=== PATIENT | female | born 1930 | race Caucasian/White ===

== ENCOUNTER 2016-04-11 15:50 | Observation (INO) | payer MEDICARE, BC ==
[~2016-04-11] VITALS: Ht 165.1 cm; Wt 78.0 kg
[~2016-04-11 15:50] MED LIST: AMIO200T PO; ASPI81CH CHEW; LACT1TAB2 PO; MEMA28CA PO; METO50TA PO; PRAV20TA2 PO; ZOLO50TA PO
--- NOTE | 2016-04-11 16:03 | PD ---
HPI Chief Complaint: Fall Time Seen by Provider: 15:59 Travel History International Travel<30 days: No Contact w/Intl Traveler<30days: No Traveled to known affect area: No History of Present Illness HPI 85-year-old female coming in from a local nursing facility via EMS status post fall earlier this morning. Patient states she fell backwards onto her buttocks. She is now having pain in her right hip/pelvis and low back. Patient denies head injury or neck pain. She has no loss of consciousness. No complaints of upper extremity pain, thoracic pain, or abdominal pain. Patient remembers her fall and landing. Patient states her pain is 8 out of 10. She has not been able to bear weight since. She denies numbness tingling or weakness in her lower extremities. She has allergies to most narcotics. She has a history of a pacemaker. She is allergic to sulfa. PFSH Past Medical History Arthritis: Yes Asthma: No Anxiety: Yes Depression: Yes Heart Rhythm Problems: Yes Cancer: No Cardiac Catheterization: Yes Cardiovascular Problems: Yes High Cholesterol: Yes Chest Pain: Yes (with anxiety) Congestive Heart Failure: Yes Cerebrovascular Accident: Yes Dementia: Yes Diabetes: No Diminished Hearing: No Endocrine: No Gastrointestinal Disorders: Yes (ABD. PAIN,) GERD: No Genitourinary: No Headaches: Yes Hepatitis: No Hiatal Hernia: Yes (?REPAIRED) Hypertension: Yes (DENIES) Immune Disorder: No Implanted Vascular Access Dvce: Yes Musculoskeletal: Yes Neurologic: Yes Psychiatric: Yes Reproductive: No Respiratory: No Immunizations Current: Yes Migraines: No Seizures: No Thyroid Disease: No Ulcer: No PNEUMOCCOCAL Vaccine (Year): 1 Menopausal: Yes : 2 Para: 2 Miscarriage: 0 : 0 Past Surgical History Abdominal Surgery: Yes (hysterectomy,gall bladder,appendectomy) AICD: Yes Appendectomy: Yes Body Medical Devices: PLASTIC CRANIAL PLATE, AICD Cardiac Surgery: Yes (pacer/defib x2) Cholecystectomy: Yes Coronary Artery Bypass Graft: No Ear Surgery: No Endocrine Surgery: Yes (pituitary tumor removed) Eye Surgery: Yes (cataracts) Genitourinary Surgery: No Gynecologic Surgery: Yes (hysterectomy) Hysterectomy: Yes Joint Replacement: No Neurologic Surgery: Yes (plate placed) Oral Surgery: No Pacemaker: Yes Thoracic Surgery: No Tonsillectomy: Yes Other Surgery: Yes (hiatal hernia, PACER PLACEMENT 01/2009. pituitary gland removed) Social History Alcohol Use: No Tobacco Use: No Substance Use: No Allergies-Medications (Allergen,Severity, Reaction): Coded Allergies: Darvocet-N 100 (Verified Allergy, Severe, HYPOTENSION, 04/11/16) Darvon (Verified Allergy, Severe, emotional duress & hypotension, 04/11/16) Sulfa (Verified Allergy, Unknown, does no know, 04/11/16) Lortab (Verified Adverse Reaction, Severe, emotional duress & hypotension , 04/11/16) Uncoded Allergies: MOST NARCOTICS CAUSE SHOCK (Allergy, Severe, 08/30/07) PACEMAKER (Adverse Reaction, Unknown, mri precaution pacemaker, 10/21/14) mri precaution non compatible pacemaker Reported Meds & Prescriptions Reported Meds & Active Scripts Active Namenda Xr (Memantine) 28 Mg Caper 28 Mg PO DAILY Amiodarone (Amiodarone HCl) 200 Mg Tab 400 Mg PO BID 30 Days Reported Zoloft (Sertraline HCl) 50 Mg Tab 100 Mg PO DAILY Pravastatin 20 Mg Tab 20 Mg PO DAILY Probiotic Acidophilus Sup (Lactobacillus) 1 Tab Tab 1 Tab PO Metoprolol Tartrate 50 Mg Tab 25 Mg PO BID Aspirin 81 Mg Chew 81 Mg CHEW DAILY Review of Systems Except as stated in HPI: all other systems reviewed are Neg General / Constitutional: No: Fever Eyes: No: Visual changes HENT: No: Headaches Cardiovascular: No: Chest Pain or Discomfort Respiratory: No: Shortness of Breath Gastrointestinal: No: Abdominal Pain Genitourinary: No: Dysuria Musculoskeletal: No: Pain Skin: No Rash Neurologic: No: Weakness Psychiatric: No: Depression Endocrine: No: Polydipsia Hematologic/Lymphatic: No: Easy Bruising Physical Exam Narrative GENERAL: Patient appears in mild distress. SKIN: Warm and dry. Normal color. Normal turgor. No abrasions or obvious signs of trauma. HEAD: Atraumatic. Normocephalic. Nontender. EYES: Pupils equal and round. No scleral icterus. No injection or drainage. ENT: No nasal bleeding or discharge. Mucous membranes pink and moist. Pharynx is normal. No dental injury. NECK: Trachea midline. No JVD. No bony step-off or tenderness. Range of motion is full. CARDIOVASCULAR: Regular rate and rhythm. No murmurs appreciated this time. RESPIRATORY: No accessory muscle use. Clear to auscultation. Breath sounds equal bilaterally. No thoracic tenderness with palpation. GASTROINTESTINAL: Abdomen soft, non-tender, nondistended. Hepatic and splenic margins not palpable. MUSCULOSKELETAL: Extremities without clubbing, cyanosis, or edema. No obvious deformities. Patient has pain in the right anterior pelvis with palpation and central pubic pressure. Left hip has normal range of motion without increased pain. Right hip has mild increased pain with flexion and internal rotation. Patient's back appears normal. She does have point tenderness in the lower thoracic upper lumbar region. No deformity or crepitus. NEUROLOGICAL: Awake and alert. No obvious cranial nerve deficits. Motor grossly within normal limits. Five out of 5 muscle strength in the arms and legs. Normal speech. PSYCHIATRIC: Appropriate mood and affect; insight and judgment normal. Data Data Last Documented VS Vital Signs Date Time Temp Pulse Resp B/P Pulse Ox O2 Delivery O2 Flow Rate FiO2 04/11/16 16:15 60 18 151/72 97 Nasal Cannula 2 04/11/16 16:05 98.2 Orders Electrocardiogram (04/11/16 16:03) Complete Blood Count With Diff (04/11/16 16:03) Comprehensive Metabolic Panel (04/11/16 16:03) Prothrombin Time / Inr (Pt) (04/11/16 16:03) Act Partial Throm Time (Ptt) (04/11/16 16:03) Hip, Uni(Ap&Lat) W Ap Pelvis (04/11/16 16:03) Iv Access Insert/Monitor (04/11/16 16:03) Oximetry (04/11/16 16:03) Ecg Monitoring (04/11/16 16:03) Sodium Chloride 0.9% Flush (Ns Flush) (04/11/16 16:15) Spine, Lumbar - Ltd (Ap & Lat) (04/11/16 16:06) Acetaminophen (Tylenol) (04/11/16 17:15) Ct Thor Spine W/O Contrast (04/11/16 18:22) Labs Laboratory Tests Test 04/11/16 04/11/16 17:40 17:50 White Blood Count 7.4 TH/MM3 Red Blood Count 4.86 MIL/MM3 Hemoglobin 14.5 GM/DL Hematocrit 44.5 % Mean Corpuscular Volume 91.5 FL Mean Corpuscular Hemoglobin 29.8 PG Mean Corpuscular Hemoglobin 32.6 % Concent Red Cell Distribution Width 15.6 % Platelet Count 76 TH/MM3 Mean Platelet Volume 8.3 FL Neutrophils (%) (Auto) 82.5 % Lymphocytes (%) (Auto) 10.1 % Monocytes (%) (Auto) 5.6 % Eosinophils (%) (Auto) 1.1 % Basophils (%) (Auto) 0.7 % Neutrophils # (Auto) 6.1 TH/MM3 Lymphocytes # (Auto) 0.7 TH/MM3 Monocytes # (Auto) 0.4 TH/MM3 Eosinophils # (Auto) 0.1 TH/MM3 Basophils # (Auto) 0.0 TH/MM3 CBC Comment AUTO DIFF Differential Comment AUTO DIFF CONFIRMED Platelet Estimate LOW Platelet Morphology Comment ENLARGED Sodium Level 142 MEQ/L Potassium Level 3.6 MEQ/L Chloride Level 105 MEQ/L Carbon Dioxide Level 25.9 MEQ/L Anion Gap 11 MEQ/L Blood Urea Nitrogen 10 MG/DL Creatinine 0.62 MG/DL Estimat Glomerular Filtration 92 ML/MIN Rate Random Glucose 95 MG/DL Calcium Level 8.0 MG/DL Total Bilirubin 0.7 MG/DL Aspartate Amino Transf 22 U/L (AST/SGOT) Alanine Aminotransferase 18 U/L (ALT/SGPT) Alkaline Phosphatase 90 U/L Total Protein 6.3 GM/DL Albumin 3.2 GM/DL Prothrombin Time 12.0 SEC Prothromb Time International 1.1 RATIO Ratio Activated Partial 26.1 SEC Thromboplast Time MDM Medical Decision Making Medical Screen Exam Complete: Yes Emergency Medical Condition: Yes Differential Diagnosis Fold. Pelvic fracture. Hip fracture. Hip strain. Narrative Course The patient is medically stable at time of exam. X-rays of the right hip and pelvis are ordered as well as AP lateral of lumbar spine. Patient did not request pain medication prior to x-rays. X-rays of the right upper and pelvis are negative for acute process per radiologist. AP and lateral of the lumbar spine showed arthritic changes without acute process. There is a loss of vertebral height of T12 per radiologist, and the patient has tenderness there. Patient is discussed with Dr. Peraza. Dr. Peraza recommended a CT scan of the thoracic spine to further evaluate possible T12 vertebral fracture. Patient was given Tylenol [address] shows subacute versus old compression fractures to the T8 and T12 per radiologist. Labs performed showed normal hematocrit and hemoglobin however platelets were noted to be low at 76. CMP abnormal show a calcium of 8.0, total protein 6.3, and albumin of 3.2. Coag show PT of 12.0, normal INR 1.1 and a PTT of 26.1. Patient was attempted to be ambulated which she was able to do with moderate difficulty and moderate to severe pain. Call was placed to Dr. Manzanares, and the patient was discussed. She agreed to admit patient to observation due to her thrombocytopenia, as well as her new onset back pain. Diagnosis Primary Impression: Acute thoracic back pain Qualified Code: M54.6 - Acute midline thoracic back pain Additional Impressions: Temporary low platelet count Fall Qualified Code: W19.XXXA - Fall, initial encounter Admitting Information Admitting Physician Requests: Observation Condition: Stable Kimani Hoyos Apr 11, 2016 16:03
[2016-04-11 16:05] VITALS: BP 168/80; PULSE 60; RESP 18; TEMP 98.2; O2SAT 98
[2016-04-11 16:15] VITALS: BP 151/72; PULSE 60; RESP 18; O2SAT 96; O2SAT 97
[2016-04-11] MEDS ORDERED: SODIUM CHLORIDE 0.9% FLUSH 5 ML FLUSH IVF PRN (16:15)
--- NOTE | 2016-04-11 16:53 | RADRPT ---
EXAM DATE/TIME: 04/11/2016 16:23 [facility] COMPARISON: No previous studies available for comparison. INDICATIONS: Right hip pain after fall. MEDICAL HISTORY: None. SURGICAL HISTORY: None. ENCOUNTER: Initial ACUITY: 1 day PAIN SCORE: 10/10 LOCATION: Right hip. FINDINGS: There are mild degenerative changes present about the right hip. Alignment is anatomic. Fracture is not appreciated. CONCLUSION: Degenerative changes, negative for fracture. Quintin Tavera MD FACR on April 11, 2016 at 16:46 Board Certified Radiologist. This report was verified electronically.
--- NOTE | 2016-04-11 16:56 | RADRPT ---
EXAM DATE/TIME: 04/11/2016 16:23 [facility] COMPARISON: CT ABDOMEN & PELVIS W CONTRAST, December 20, 2015, 19:57. INDICATIONS: Lower back pain after fall. MEDICAL HISTORY: None. SURGICAL HISTORY: None. ENCOUNTER: Initial ACUITY: 1 day PAIN SCORE: 10/10 LOCATION: Bilateral lower back. FINDINGS: There are [id number] changes in the lumbar spine with loss of disc space height at L2-3, 3-4, 4-5 and L5-S1. There is loss of vertebral body height at T12. There are moderate degenerative changes p resent at the facets. SI joints are normal. CONCLUSION: Degenerative changes as described above. The compression at T12 is indeterminate in age. MRI could be used to stage this. Quintin Tavera MD FACR on April 11, 2016 at 16:47 Board Certified Radiologist. This report was verified electronically.
[2016-04-11] MEDS ORDERED: ACETAMINOPHEN 325 MG TAB PO ONE (17:15)
[2016-04-11 18:21] LABS: APTT (PATIENT) 26.1 SEC (24.3-30.1); INTERNATIONAL NORMALIZED RATIO 1.1 RATIO
[2016-04-11 18:23] LABS: AUTOMATED NEUTROPHIL # 6.1 TH/MM3 (1.8-7.7); BASOPHIL % 0.7 % (0.0-2.0); EOSINOPHIL # 0.1 TH/MM3 (0-0.4); EOSINOPHIL % 1.1 % (0.0-4.0); HEMATOCRIT 44.5 % (35.0-46.0); HEMO FLAGS AUTO DIFF; LYMPH % 10.1 % (9.0-44.0); LYMPHOCYTE # 0.7 TH/MM3 (1.0-4.8); MEAN CELL VOLUME 91.5 FL (80.0-100.0); MEAN CORPUSCULAR HEMOGLOBIN 29.8 PG (27.0-34.0); MEAN CORPUSCULAR HGB CONC 32.6 % (32.0-36.0); MONO % 5.6 % (0.0-8.0); NEUT % 82.5 % (16.0-70.0); PLATELET COUNT 76 TH/MM3 (150-450); RED BLOOD COUNT 4.86 MIL/MM3 (4.00-5.30); RED CELL DISTRIBUTION WIDTH 15.6 % (11.6-17.2); WHITE BLOOD COUNT 7.4 TH/MM3 (4.0-11.0)
[2016-04-11 18:31] LABS: PLATELET ESTIMATE SMEAR LOW (NORMAL); PLATELET MORPHOLOGY ENLARGED (NORMAL); SCAN/DIFF AUTO DIFF CONFIRMED
[2016-04-11 18:36] LABS: ALKALINE PHOSPHATASE 90 U/L (45-117); ALT (GPT) 18 U/L (10-53); ANION GAP 11 MEQ/L (5-15); AST (GOT) 22 U/L (15-37); BICARBONATE 25.9 MEQ/L (21.0-32.0); BLOOD UREA NITROGEN 10 MG/DL (7-18); CHLORIDE 105 MEQ/L (98-107); GLOMERULAR FILTRATION RATE 92 ML/MIN (>89); POTASSIUM 3.6 MEQ/L (3.5-5.1); SODIUM (NA) 142 MEQ/L (136-145); TOTAL BILIRUBIN ADULT 0.7 MG/DL (0.2-1.0)
--- NOTE | 2016-04-11 19:57 | RADRPT ---
EXAM DATE/TIME: 04/11/2016 18:38 [facility] COMPARISON: No previous studies available for comparison. INDICATIONS : fall tody onto posterior, lower back pain. RADIATION DOSE: 18.92 CTDIvol (mGy) MEDICAL HISTORY : Stroke. Hypertension. SURGICAL HISTORY : Hysterectomy. Pacemaker. ENCOUNTER: Initial ACUITY: 1 day PAIN SCALE: 5/10 LOCATION: lower back TECHNIQUE: Volumetric scanning of the thoracic spine was performed. Multiplanar reconstructions in the sagittal , coronal and oblique axial planes were performed. Using automated exposure control and adjustment o f the mA and/or kV according to patient size, radiation dose was kept as low as reasonably achievable to obtain optimal diagnostic quality images. FINDINGS: No prior study available for comparison. The bones are osteopenic. There are multiple Schmorl's nodes most prominent at T8 inferiorly and T12 superiorly. There is a mild compression deformity of T12 but no acute fracture line is identified. There is a fracture of the left transverse process of L3 noted incidentally. There is no spondylolisthesis. No significant bony canal stenosis. CONCLUSION: 1. Mild compression deformities of T8 and T12 which appear subacute or old and are associated with Sc hmorl's nodes. The bones are diffusely osteopenic. There is no significant bony canal stenosis. Incid ental note made of a left transverse process fracture of L3. There is also a chronic appearing centra l depression in the superior endplate of L3. Edward Peterson MD on April 11, 2016 at 19:51 Board Certified Radiologist. This report was verified electronically.
[2016-04-11] MEDS ORDERED: SODIUM CHLORIDE 0.9% FLUSH 5 ML FLUSH FLUSH PRN (20:30)
[2016-04-11] MEDS ORDERED: NALOXONE HCL 0.4 MG/ML AMP IV PRN (20:30)
[2016-04-11] MEDS ORDERED: ONDANSETRON HCL 4 MG/2 ML VIAL IVP PRN (20:30)
[2016-04-11] MEDS: SODIUM CHLORIDE 0.9% FLUSH 5 ML FLUSH FLUSH SCH (21:00)
[2016-04-11] MEDS ORDERED: ACETAMINOPHEN 325 MG TAB PO PRN (22:15)
[2016-04-11 22:45] VITALS: PULSE 60
[2016-04-12] VITALS (7 sets, daily range): BP systolic 110–165; BP diastolic 59–88; PULSE 59–79; RESP 18–21; TEMP 97.4–98.2; O2SAT 93–97
--- NOTE | 2016-04-12 03:31 | HHI.HP ---
[facility] Primary Care Physician Kimo Haro MD Admission Diagnosis Throbocytopenia/Fall with Acute thoracic pain Diagnoses: Chief Complaint: right hip pain and back pain Travel History International Travel<30 Days: No Contact w/Intl Traveler <30 Da: No Traveled to Known Affected Are: No History of Present Illness History taken from patient, emr and er physician. 85 y/o female with a history of HTN, dementia, chf, and cva was brought to ER by [facility] after a fall at the [facility] and she is complaining of right hip pain and back pain. Patient is somewhat of a poor historian when discussing history and current events. Patient states she got up to go to the bathroom and was in a hurry when she slipped and fell. She states she fell on her butt and is complaining of right hip and back pain. She denies any chest pain, sob, fever or chills. She also denies any weakness or dizziness. She is unsure of her history, put does know that she has a pacemaker. She is currently at the [facility] for rehab. Review of Systems ROS Limitations: Poor Historian (hx of dementia) Constitutional: DENIES: Fever, Chills, Dizziness Respiratory: DENIES: Cough, Sputum production, Shortness of breath Cardiovascular: COMPLAINS OF: Lower Extremity Edema, DENIES: Chest pain, Palpitations Gastrointestinal: DENIES: Black stools, Bloody stools, Constipation, Diarrhea, Nausea, Vomiting Genitourinary: DENIES: Hematuria, Dysuria Musculoskeletal: COMPLAINS OF: Joint pain, Back pain, DENIES: Neck pain Hematologic/lymphatic: DENIES: Lymphadenopathy Immunologic/allergic: DENIES: Urticaria Neurologic: DENIES: Headache, Localized weakness Past Family Social History Past Medical History Per EMR: HTN Dementia CHF- last echo 10/23/14 EF 50% CVA Past Surgical History Per EMR: AICD Tonsillectomy Appendectomy Hysterectomy Hiatal hernia repair Pituitary tumor excision Reported Medications Reported Meds & Active Scripts Active Namenda Xr (Memantine) 28 Mg Caper 28 Mg PO DAILY Amiodarone (Amiodarone HCl) 200 Mg Tab 400 Mg PO BID 30 Days Reported Zoloft (Sertraline HCl) 50 Mg Tab 100 Mg PO DAILY Pravastatin 20 Mg Tab 20 Mg PO DAILY Probiotic Acidophilus Sup (Lactobacillus) 1 Tab Tab 1 Tab PO Metoprolol Tartrate 50 Mg Tab 25 Mg PO BID Aspirin 81 Mg Chew 81 Mg CHEW DAILY Allergies: Coded Allergies: Darvocet-N 100 (Verified Allergy, Severe, HYPOTENSION, 04/11/16) Darvon (Verified Allergy, Severe, emotional duress & hypotension, 04/11/16) Sulfa (Verified Allergy, Unknown, does no know, 04/11/16) Lortab (Verified Adverse Reaction, Severe, emotional duress & hypotension , 04/11/16) Uncoded Allergies: MOST NARCOTICS CAUSE SHOCK (Allergy, Severe, 08/30/07) PACEMAKER (Adverse Reaction, Unknown, mri precaution pacemaker, 10/21/14) mri precaution non compatible pacemaker Active Ordered Medications Current Medications Medications (Trade) Dose Ordered Sig/Uziel Route Start Time Stop Time Status Last Admin (NS Flush) 2 ml UNSCH PRN FLUSH 04/11/16 20:30 (NS Flush) 2 ml BID FLUSH 04/11/16 21:00 04/11/16 21:00 (Zofran Inj) 4 mg Q6H PRN IVP 04/11/16 20:30 (Narcan Inj) 0.4 mg UNSCH PRN IV 04/11/16 20:30 (Tylenol) 650 mg Q4H PRN PO 04/11/16 22:15 Family History Patient denies any family history. No family history noted in EMR. Social History Patient denies any tobacco, alcohol or illicit drug use. Physical Exam Vital Signs Vital Signs Date Time Temp Pulse Resp B/P Pulse Ox O2 Delivery O2 Flow Rate FiO2 04/11/16 22:45 60 04/11/16 21:38 20 04/11/16 16:15 60 18 151/72 97 Nasal Cannula 2 04/11/16 16:15 60 16 04/11/16 16:15 60 18 151/72 96 Nasal Cannula 2 04/11/16 16:05 98.2 60 18 168/80 98 Physical Exam GENERAL: This is a well-nourished, well-developed patient, in no apparent distress. SKIN: No rashes, ecchymoses or lesions. Cool and dry. HEAD: Atraumatic. Normocephalic. EYES: Pupils equal round and reactive. ENT: Nose without bleeding, purulent drainage or septal hematoma. Airway patent. NECK: Trachea midline. No JVD CARDIOVASCULAR: Regular rate and rhythm without murmurs, gallops, or rubs. RESPIRATORY: Clear to auscultation. Breath sounds equal bilaterally. No wheezes , rales, or rhonchi. GASTROINTESTINAL: Abdomen soft, non-tender, nondistended. No hepato-splenomegaly , or palpable masses. No guarding. MUSCULOSKELETAL: Bilateral lower extremities with +2 pitting edema and tenderness to the right leg. No calf tenderness. NEUROLOGICAL: Awake and alert with some dementia. Motor and sensory grossly within normal limits. Normal speech. Laboratory Laboratory Tests Test 04/11/16 04/11/16 17:40 17:50 White Blood Count 7.4 Red Blood Count 4.86 Hemoglobin 14.5 Hematocrit 44.5 Mean Corpuscular Volume 91.5 Mean Corpuscular Hemoglobin 29.8 Mean Corpuscular Hemoglobin 32.6 Concent Red Cell Distribution Width 15.6 Platelet Count 76 Mean Platelet Volume 8.3 Neutrophils (%) (Auto) 82.5 Lymphocytes (%) (Auto) 10.1 Monocytes (%) (Auto) 5.6 Eosinophils (%) (Auto) 1.1 Basophils (%) (Auto) 0.7 Neutrophils # (Auto) 6.1 Lymphocytes # (Auto) 0.7 Monocytes # (Auto) 0.4 Eosinophils # (Auto) 0.1 Basophils # (Auto) 0.0 CBC Comment AUTO DIFF Differential Comment AUTO DIFF CONFIRMED Platelet Estimate LOW Platelet Morphology Comment ENLARGED Sodium Level 142 Potassium Level 3.6 Chloride Level 105 Carbon Dioxide Level 25.9 Anion Gap 11 Blood Urea Nitrogen 10 Creatinine 0.62 Estimat Glomerular Filtration 92 Rate Random Glucose 95 Calcium Level 8.0 Total Bilirubin 0.7 Aspartate Amino Transf 22 (AST/SGOT) Alanine Aminotransferase 18 (ALT/SGPT) Alkaline Phosphatase 90 Total Protein 6.3 Albumin 3.2 Prothrombin Time 12.0 Prothromb Time International 1.1 Ratio Activated Partial 26.1 Thromboplast Time Result Diagram: 04/11/16 1740 04/11/16 1740 Imaging Last Impressions Thoracic Spine CT 04/11/16 1822 Signed Impressions: Service Date/Time: Monday, April 11, 2016 18:38 - CONCLUSION: 1. Mild compression deformities of T8 and T12 which appear subacute or old and are associated with Schmorl's nodes. The bones are diffusely osteopenic. There is no significant bony canal stenosis. Incidental note made of a left transverse process fracture of L3. There is also a chronic appearing central depression in the superior endplate of L3. Edward Peterson MD Lumbar Spine X-Ray 04/11/16 1606 Signed Impressions: Service Date/Time: Monday, April 11, 2016 16:23 - CONCLUSION: Degenerative changes as described above. The compression at T12 is indeterminate in age. MRI could be used to stage this. Quintin Tavera MD FACR Hip and Pelvis X-Ray 04/11/16 1603 Signed Impressions: Service Date/Time: Monday, April 11, 2016 16:23 - CONCLUSION: Degenerative changes, negative for fracture. Quintni Tavera MD FACR Assessment and Plan Problem List: (1) Temporary low platelet count ICD Code: D69.6 Status: Acute (2) Lumbar pain ICD Code: M54.5 Status: Acute (3) HTN (hypertension) ICD Code: I10 Status: Chronic (4) A-fib ICD Code: I48.91 Status: Chronic (5) Dementia ICD Code: F03.90 Status: Chronic Assessment and Plan 85 y/o with a history of HTN, DM, CHF and CVA presented with: Temporary low platelet count Labs: platelet 76 , last admission in 04/01/2016 count was 175 -HIT panel pending -Ultrasound bilateral lower extremities to rule out DVT L3 transvers process fx Images: Thoracic spine CT shows Mild compression deformities of T8 and T12 which appear subacute or old and are associated with Schmorl's nodes. The bones are diffusely osteopenic. There is no significant bony canal stenosis. Incidental note made of a left transverse process fracture of L3. There is also a chronic appearing central depression in the superior endplate of L3. -Neurosurgery consult for recommendations Hypertension, chronic -Monitor vitals -cont home metoprolol Afib, chronic -monitor tele -Cont home amiodarone Dementia, chronic -Cont home Namenda -fall precautions DVT prophylaxis: Hold SCDs and chemical anticoagulation due to low platelet count Written by Soco PACHECO, acting as scribe for Dr. Manzanares on 04/12/16 at 0405. The documentation accurately reflects the work performed [id number] and decisions made by me and the physician Dr Manzanares on 04/12/16. The documentation accurately reflects the work performed [id number] by me on at 0405 Discussed Condition With Patient and ED physician Soco Cervantes Apr 12, 2016 03:31 Kevin Manzanares MD Apr 12, 2016 08:06
[2016-04-12 07:18] LABS: AUTOMATED NEUTROPHIL # 4.9 TH/MM3 (1.8-7.7); BASOPHIL % 0.6 % (0.0-2.0); EOSINOPHIL # 0.2 TH/MM3 (0-0.4); EOSINOPHIL % 2.9 % (0.0-4.0); HEMATOCRIT 38.4 % (35.0-46.0); HEMO FLAGS DIFF FINAL; LYMPHOCYTE # 0.8 TH/MM3 (1.0-4.8); MEAN CELL VOLUME 87.5 FL (80.0-100.0); MEAN CORPUSCULAR HEMOGLOBIN 30.4 PG (27.0-34.0); MEAN CORPUSCULAR HGB CONC 34.8 % (32.0-36.0); MONO % 8.1 % (0.0-8.0); NEUT % 76.4 % (16.0-70.0); PLATELET COUNT 143 TH/MM3 (150-450); RED BLOOD COUNT 4.39 MIL/MM3 (4.00-5.30); RED CELL DISTRIBUTION WIDTH 15.6 % (11.6-17.2); WHITE BLOOD COUNT 6.5 TH/MM3 (4.0-11.0)
[2016-04-12 07:46] LABS: BICARBONATE 27.8 MEQ/L (21.0-32.0); POTASSIUM 3.4 MEQ/L (3.5-5.1)
[2016-04-12] MEDS: AMIODARONE 200 MG TAB PO SCH ×2 (09:06→20:51)
[2016-04-12] MEDS: SERTRALINE HCL 100 MG TAB PO SCH (09:06)
[2016-04-12] MEDS: METOPROLOL TARTRATE 25 MG TAB PO SCH ×2 (09:06→20:52)
[2016-04-12] MEDS: MEMANTINE HCL 10 MG TAB PO SCH ×2 (09:06→20:52)
[2016-04-12] MEDS: PRAVASTATIN SOD 20 MG TAB PO SCH (09:06)
--- NOTE | 2016-04-12 09:06 | RADRPT ---
EXAM DATE/TIME: 04/12/2016 08:22 [facility] COMPARISON: No previous studies available for comparison. INDICATIONS : Bilateral leg pain. MEDICAL HISTORY : Hypercholesterolemia. CVA. Dementia. Congestive heart failure. Syncope. Hiatal hernia. SURGICAL HISTORY : Tonsillectomy.Pacemaker. Hysterectomy.Cataract removal. Hernia repair. Cholecystectomy. Appendectomy. Clavicle repair. Pituitary tumor removal. Back surgery. ENCOUNTER: Subsequent ACUITY: 1 day PAIN SCORE: 4/10 LOCATION: Bilateral legs. TECHNIQUE: Venous ultrasound of the left and right leg was performed from the inguinal ligament to the proximal calf. Real-time, color Doppler and spectral tracing, compression and augmentation techniques were us ed. FINDINGS: RIGHT LEG: There is normal compressibility of the deep venous system from the inguinal region to the proximal ca lf. No echogenic clot is seen in the lumen of the common femoral, femoral, popliteal, and posterior tibial veins. There is a normal response of the venous system to proximal and distal augmentation an d respiration. LEFT LEG: There is normal compressibility of the deep venous system from the inguinal region to the proximal ca lf. No echogenic clot is seen in the lumen of the common femoral, femoral, popliteal, and posterior tibial veins. There is a normal response of the venous system to proximal and distal augmentation an d respiration. CONCLUSION: Normal examination. Small Nina's cyst on the left. Rafael Ernst MD on April 12, 2016 at 9:04 Board Certified Radiologist. This report was verified electronically.
[2016-04-12] MEDS: ASPIRIN 81 MG CHEW TAB CHEW SCH (09:07)
[2016-04-12] MEDS: SODIUM CHLORIDE 0.9% FLUSH 5 ML FLUSH FLUSH SCH ×2 (09:08→20:55)
--- NOTE | 2016-04-12 13:48 | EKG ---
Date Performed: 04/11/2016 Time Performed: 16:53:02 PTAGE: 85 years EKG: ELECTRONIC ATRIAL PACEMAKER MARKED LEFT AXIS DEVIATION MODERATE INTRAVENTRICULAR CONDUCTION DELAY NONSPECIFIC ST & T-WAVE ABNORMALITY ABNORMAL ECG Compared to prior tracing no significant guzman channing PREVIOUS TRACING : 02/24/2016 12.57 DOCTOR: Cynthia Clark Interpretating Date/Time 04/12/2016 13:45:41
--- NOTE | 2016-04-12 13:50 | PD.CONS ---
HPI Service Neurosurgery Consult Requested By ED Reason for Consult L3 TP fx, pain Primary Care Physician Kimo Haro MD History of Present Illness 85 yr old lady living at home with her daughter fell while going to the bathroom and has new neck and back pain. She has no new weakness and no new numbness. She controls her bladder. She had a work up in the ED and was found to have L3 superior end plate defect and left TP fx. Her pain is controlled with tylenol and tramadol. She walks with a walker ad also uses the wheelchair at home. She has a hospital bed in the living room and a commode. Review of Systems Hiccups ROS Limitations: Hearing Impaired Constitutional: DENIES: Diaphoretic episodes, Fatigue, Fever, Weight gain, Weight loss, Chills, Dizziness, Change in appetite, Night Sweats Endocrine: DENIES: Abnorml menstrual pattern, Heat/cold intolerance, Polydipsia , Polyuria, Polyphagia Ears, nose, mouth, throat: DENIES: Tinnitus, Hearing loss, Vertigo, Nasal discharge, Oral lesions, Throat pain, Hoarseness, Ear Pain, Running Nose, Epistaxis, Sinus Pain, Toothache, Odynophagia Respiratory: DENIES: Apneas, Cough, Snoring, Wheezing, Hemoptysis, Sputum production, Shortness of breath Cardiovascular: COMPLAINS OF: Dyspnea on Exertion, Lower Extremity Edema Genitourinary: DENIES: Abnormal vaginal bleeding, Dysmenorrhea, Dyspareunia, Sexual dysfunction, Urinary frequency, Urinary incontinence, Urgency, Hematuria , Dysuria, Nocturia, Vaginal discharge Musculoskeletal: COMPLAINS OF: Back pain, Neck pain Integumentary: DENIES: Abnormal pigmentation, Pruritus, Rash, Nail changes, Breast masses, Breast skin changes, Nipple discharge Hematologic/lymphatic: DENIES: Bruising, Lymphadenopathy Immunologic/allergic: DENIES: Eczema, Urticaria Past Family Social History Allergies: Coded Allergies: Darvocet-N 100 (Verified Allergy, Severe, HYPOTENSION, 04/11/16) Darvon (Verified Allergy, Severe, emotional duress & hypotension, 04/11/16) Sulfa (Verified Allergy, Unknown, does no know, 04/11/16) Lortab (Verified Adverse Reaction, Severe, emotional duress & hypotension , 04/11/16) Uncoded Allergies: MOST NARCOTICS CAUSE SHOCK (Allergy, Severe, 08/30/07) PACEMAKER (Adverse Reaction, Unknown, mri precaution pacemaker, 10/21/14) mri precaution non compatible pacemaker Past Medical History Arhythmias, CAD Degenerated disc disease Osteoporosis Past Surgical History Hernia repair Defibrillator Reported Medications Reported Meds & Active Scripts Active Namenda Xr (Memantine) 28 Mg Caper 28 Mg PO DAILY Amiodarone (Amiodarone HCl) 200 Mg Tab 400 Mg PO BID 30 Days Reported Zoloft (Sertraline HCl) 50 Mg Tab 100 Mg PO DAILY Pravastatin 20 Mg Tab 20 Mg PO DAILY Probiotic Acidophilus Sup (Lactobacillus) 1 Tab Tab 1 Tab PO Metoprolol Tartrate 50 Mg Tab 25 Mg PO BID Aspirin 81 Mg Chew 81 Mg CHEW DAILY Family History Both parents of old age Social History Lives in a house with her daughter, does not smoke or drink Physical Exam Vital Signs Vital Signs Date Time Temp Pulse Resp B/P Pulse Ox O2 Delivery O2 Flow Rate FiO2 04/12/16 11:32 98.2 60 20 124/61 95 04/12/16 09:00 59 04/12/16 07:15 97.4 60 20 165/75 96 04/12/16 04:00 97.7 79 21 148/78 97 04/12/16 00:00 98.0 67 18 138/88 97 04/11/16 22:45 60 04/11/16 21:38 20 04/11/16 16:15 60 18 151/72 97 Nasal Cannula 2 04/11/16 16:15 60 16 04/11/16 16:15 60 18 151/72 96 Nasal Cannula 2 04/11/16 16:05 98.2 60 18 168/80 98 Physical Exam Very pleasant lady looks her stated age, head is atraumatic Pupils are small,left ayala's palsy, speech fluent and appropriate, has a sense of humor, 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 Sensation is present in all extremities. Reflexes are 3/4 in the bic/tri/patella but she has no Kay sign and no Babinski Peripheral edema, severe, bilateral, no rashes, abd soft, obese, bs are present , lungs are clear, heart is regular Laboratory Laboratory Tests Test 04/11/16 04/11/16 04/12/16 17:40 17:50 06:20 White Blood Count 7.4 6.5 Red Blood Count 4.86 4.39 Hemoglobin 14.5 13.3 Hematocrit 44.5 38.4 Mean Corpuscular Volume 91.5 87.5 Mean Corpuscular Hemoglobin 29.8 30.4 Mean Corpuscular Hemoglobin 32.6 34.8 Concent Red Cell Distribution Width 15.6 15.6 Platelet Count 76 143 Mean Platelet Volume 8.3 8.8 Neutrophils (%) (Auto) 82.5 76.4 Lymphocytes (%) (Auto) 10.1 12.0 Monocytes (%) (Auto) 5.6 8.1 Eosinophils (%) (Auto) 1.1 2.9 Basophils (%) (Auto) 0.7 0.6 Neutrophils # (Auto) 6.1 4.9 Lymphocytes # (Auto) 0.7 0.8 Monocytes # (Auto) 0.4 0.5 Eosinophils # (Auto) 0.1 0.2 Basophils # (Auto) 0.0 0.0 CBC Comment AUTO DIFF DIFF FINAL Differential Comment AUTO DIFF CONFIRMED Platelet Estimate LOW Platelet Morphology Comment ENLARGED Sodium Level 142 142 Potassium Level 3.6 3.4 Chloride Level 105 107 Carbon Dioxide Level 25.9 27.8 Anion Gap 11 7 Blood Urea Nitrogen 10 10 Creatinine 0.62 0.59 Estimat Glomerular Filtration 92 97 Rate Random Glucose 95 85 Calcium Level 8.0 8.1 Total Bilirubin 0.7 Aspartate Amino Transf 22 (AST/SGOT) Alanine Aminotransferase 18 (ALT/SGPT) Alkaline Phosphatase 90 Total Protein 6.3 Albumin 3.2 Prothrombin Time 12.0 Prothromb Time International 1.1 Ratio Activated Partial 26.1 Thromboplast Time Result Diagram: 04/12/1620 04/12/16 0620 Imaging Last Impressions Lower Extremity Ultrasound 04/12/16 0000 Signed Impressions: Service Date/Time: Tuesday, April 12, 2016 08:22 - CONCLUSION: Normal examination. Small Nina's cyst on the left. Rafael Ernst MD Thoracic Spine CT 04/11/16 1822 Signed Impressions: Service Date/Time: Monday, April 11, 2016 18:38 - CONCLUSION: 1. Mild compression deformities of T8 and T12 which appear subacute or old and are associated with Schmorl's nodes. The bones are diffusely osteopenic. There is no significant bony canal stenosis. Incidental note made of a left transverse process fracture of L3. There is also a chronic appearing central depression in the superior endplate of L3. Edward Peterson MD Lumbar Spine X-Ray 04/11/16 1606 Signed Impressions: Service Date/Time: Monday, April 11, 2016 16:23 - CONCLUSION: Degenerative changes as described above. The compression at T12 is indeterminate in age. MRI could be used to stage this. Quintin Tavera MD FACR Hip and Pelvis X-Ray 04/11/16 1603 Signed Impressions: Service Date/Time: Monday, April 11, 2016 16:23 - CONCLUSION: Degenerative changes, negative for fracture. Quintin Tavera MD FACR Assessment and Plan Diagnosis: (1) Closed L3 vertebral fracture ICD Code: S32.039A Assessment and Plan A bone scan was requested to evaluate the presence of other lesions but no instability is expected. Mobilization is limited by pain and peripheral edema. She is determined to go back home as she just completed a rehab recently. I will follow. Problem Qualifiers (1) Closed L3 vertebral fracture: Qualified Code: S32.030A - Closed wedge compression fracture of third lumbar vertebra, initial encounter Ahmet Michel Apr 12, 2016 13:50
[2016-04-12] MEDS ORDERED: POTASSIUM CHLORIDE 20 MEQ CONTROLLED RELEASE TAB PO ONE (14:15)
--- NOTE | 2016-04-12 14:17 | HHI.PR ---
Subjective Remarks Follow-up for fall and back pain. Oriented to person, place, time. The patient continues to complain of back pain. She does not recall working with PT today. She is currently at SNF, but would prefer to go home with her daughter. She denies any paresthesias or weakness. Doesn't have much of an appetite today, states appetite has been normal. Objective Vitals Vital Signs Date Time Temp Pulse Resp B/P Pulse Ox O2 Delivery O2 Flow Rate FiO2 04/12/16 11:32 98.2 60 20 124/61 95 04/12/16 09:00 59 04/12/16 07:15 97.4 60 20 165/75 96 04/12/16 04:00 97.7 79 21 148/78 97 04/12/16 00:00 98.0 67 18 138/88 97 04/11/16 22:45 60 04/11/16 21:38 20 04/11/16 16:15 60 18 151/72 97 Nasal Cannula 2 04/11/16 16:15 60 16 04/11/16 16:15 60 18 151/72 96 Nasal Cannula 2 04/11/16 16:05 98.2 60 18 168/80 98 I/O 04/11/16 04/11/16 04/11/16 04/12/16 04/12/16 04/12/16 07:00 15:00 23:00 07:00 15:00 23:00 Intake Total 240 ml Balance 240 ml Intake Oral 240 ml Result Diagram: 04/12/16 0620 04/12/16 0620 Imaging Last Impressions Lower Extremity Ultrasound 04/12/16 0000 Signed Impressions: Service Date/Time: Tuesday, April 12, 2016 08:22 - CONCLUSION: Normal examination. Small Nina's cyst on the left. Rafael Ernst MD Thoracic Spine CT 04/11/16 1822 Signed Impressions: Service Date/Time: Monday, April 11, 2016 18:38 - CONCLUSION: 1. Mild compression deformities of T8 and T12 which appear subacute or old and are associated with Schmorl's nodes. The bones are diffusely osteopenic. There is no significant bony canal stenosis. Incidental note made of a left transverse process fracture of L3. There is also a chronic appearing central depression in the superior endplate of L3. Edward Peterson MD Lumbar Spine X-Ray 1/30/17 1606 Signed Impressions: Service Date/Time: Monday, April 11, 2016 16:23 - CONCLUSION: Degenerative changes as described above. The compression at T12 is indeterminate in age. MRI could be used to stage this. Quintin Tavera MD FACR Hip and Pelvis X-Ray 04/11/16 1603 Signed Impressions: Service Date/Time: Monday, April 11, 2016 16:23 - CONCLUSION: Degenerative changes, negative for fracture. Quintin Tavera MD FACR Objective Remarks GENERAL: Well-developed well-nourished. In no acute distress. Oriented 4. SKIN: Warm and dry. No lesions noted. HEENT: Normocephalic. Pupils equal and round. Mucous membranes pink and moist. CARDIOVASCULAR: Regular rate and rhythm. No murmur appreciated. RESPIRATORY: No accessory muscle use. Clear to auscultation. Breath sounds equal bilaterally. GASTROINTESTINAL: Abdomen soft, non-tender, nondistended. Bowel sounds x4. MUSCULOSKELETAL: No obvious deformities. No clubbing or cyanosis. Bilateral lower extremity edema 2+ NEUROLOGICAL: Awake and alert. No focal neurological deficits. Moves upper and lower extremities spontaneously. Normal speech. Strength 5/5. PSYCHIATRIC: Appropriate mood and affect; insight and judgment fair to normal. A/P Problem List: (1) Temporary low platelet count ICD Code: D69.6 Status: Acute (2) Lumbar pain ICD Code: M54.5 Status: Acute (3) HTN (hypertension) ICD Code: I10 Status: Chronic (4) A-fib ICD Code: I48.91 Status: Chronic (5) Dementia ICD Code: F03.90 Status: Chronic Assessment and Plan 85 y/o with a history of HTN, DM, CHF and CVA presented with: Thrombocytopenia, likely reactive Labs: platelet 76 , last admission in 04/01/2016 count was 175. Improved to 143 overnight. Ultrasound negative for DVT. -HIT panel pending L3 transverse process fx Images: Thoracic spine CT shows mild compression deformities of T8 and T12 which appear subacute or old and are associated with Schmorl's nodes. The bones are diffusely osteopenic. There is no significant bony canal stenosis. Incidental note made of a left transverse process fracture of L3. There is also a chronic appearing central depression in the superior endplate of L3. -Neurosurgery consulted, recommended pain control and physical therapy, no intervention, ordered bone scan Hypertension/atrial fibrillation: Chronic, stable. -Continue home amiodarone and metoprolol. Monitor and adjust meds as needed. Dementia, chronic Oriented 3, but does not recall physical therapy evaluation earlier today. -Cont home Namenda DVT prophylaxis: TEDs. Will not tolerate SCDs with lower extremity edema. Chemoprophylaxis contraindicated with thrombocytopenia. Discharge Planning Case management consulted for discharge to home with family and HHC vs back to SNF. Problem Qualifiers (1) HTN (hypertension): Qualified Code: I10 - Essential hypertension Florentino Salazar Apr 12, 2016 14:17 Risa Nelson MD Apr 12, 2016 15:15
--- NOTE | 2016-04-12 17:04 | RADRPT ---
EXAM DATE/TIME: 04/12/2016 15:10 [facility] COMPARISON: No previous studies available for comparison. PRIOR BONE SCANS: No correlative bone scan available for comparison. INDICATIONS: Trauma. DOSE: 32.7 mCi Tc99m MDP IV IMAGING: SPECT/CT imaging with fusion was performed. RADIATION DOSE: 3.54 CTDIvol (mGy) MEDICAL HISTORY: Stroke. Congestive heart failure. Coronary artery disease. SURGICAL HISTORY: Tonsillectomy. Pacemaker. Hysterectomy. ENCOUNTER: Initial ACUITY: 1 day PAIN SCALE: 3/10 LOCATION: Lower back. TECHNIQUE: Three hours post intravenous administration of radiotracer, whole body bone scan imaging was performe d. FINDINGS: After injection of radiation dose SPECT imaging was performed. Anteriorly on the right there are thr ee focal abnormal areas of activity I suspected are nondisplaced rib fractures. There is some increa sed activity in the left L3 transverse process, bilateral lower legs are unremarkable. The upper arm s are unremarkable. T12 and T8 where there are Schmorl's nodes showed no abnormal areas of bony turn over. There is some low grade activity throughout T12. CONCLUSION: Uptake in the anterior right chest I suspect are a few healing rib fractures. Left L3 uptake in the transverse likely healing fracture. Diffuse uptake at T12 but not very impressive. No other acute f ractures identified. Rafael Ernst MD on April 12, 2016 at 16:53 Board Certified Radiologist. This report was verified electronically.
[2016-04-12] MEDS: ACETAMINOPHEN 500 MG CPLT PO SCH ×2 (17:06→20:53)
[2016-04-12 17:18] LABS: HEPARIN AB OD 0.024 O.D. (0.000-0.300); HEPARIN INDUCED PLATELET AB NEGATIVE (NEGATIVE)
[2016-04-12] MEDS: traMADol HCL 50 MG TAB PO PRN (20:53)
[2016-04-13] VITALS (7 sets, daily range): BP systolic 104–146; BP diastolic 61–79; PULSE 60–87; RESP 18–22; TEMP 96.7–98.9; O2SAT 95–99
[2016-04-13] MEDS ORDERED: TRAM50TA PO (07:50)
--- NOTE | 2016-04-13 07:51 | HHI.DCPOC ---
Discharge Care Plan Goals to Promote Your Health * To prevent worsening of your condition and complications * To maintain your health at the optimal level Directions to Meet Your Goals Take your medications as prescribed Follow your dietary instruction Follow activity as directed Keep your appointments as scheduled Take your immunizations and boosters as scheduled If your symptoms worsen call your PCP, if no PCP go to Urgent Care Center or Emergency Room Smoking is Dangerous to Your Health. Avoid second hand smoke Call the 24-hour hour crisis hotline for domestic abuse at Risa Nelson MD Apr 13, 2016 07:50
[2016-04-13] MEDS: ASPIRIN 81 MG CHEW TAB CHEW SCH (08:54)
[2016-04-13] MEDS: SERTRALINE HCL 100 MG TAB PO SCH (08:55)
[2016-04-13] MEDS: PRAVASTATIN SOD 20 MG TAB PO SCH (08:55)
[2016-04-13] MEDS: METOPROLOL TARTRATE 25 MG TAB PO SCH ×2 (08:55→20:49)
[2016-04-13] MEDS: MEMANTINE HCL 10 MG TAB PO SCH ×2 (08:55→20:48)
[2016-04-13] MEDS: AMIODARONE 200 MG TAB PO SCH ×2 (08:55→20:49)
[2016-04-13] MEDS: SODIUM CHLORIDE 0.9% FLUSH 5 ML FLUSH FLUSH SCH ×2 (08:55→20:48)
[2016-04-13] MEDS: ACETAMINOPHEN 500 MG CPLT PO SCH ×4 (08:55→20:49)
--- NOTE | 2016-04-13 09:39 | HHI.PR ---
Subjective Remarks Follow-up for back pain. The patient reports no pain in her back at this time, as long as she doesn't move. She states pain is less. When she tries to move. She does state that the tramadol helps the pain. She denies any numbness or tingling. She denies any nausea, vomiting, diarrhea, constipation. She is agreeable for SNF placement, but she does not want to go back to the same facility she came from. Objective Vitals Vital Signs Date Time Temp Pulse Resp B/P Pulse Ox O2 Delivery O2 Flow Rate FiO2 04/13/16 08:26 97.7 87 18 146/78 95 04/13/16 05:18 98.0 60 18 130/70 97 04/13/16 00:27 96.7 60 22 104/61 97 04/12/16 22:12 20 04/12/16 22:12 20 04/12/16 18:44 60 18 142/75 96 04/12/16 14:37 98.1 60 20 110/59 93 04/12/16 11:32 98.2 60 20 124/61 95 I/O 04/12/16 04/12/16 04/12/16 04/13/16 04/13/16 04/13/16 07:00 15:00 23:00 07:00 15:00 23:00 Intake Total 875 ml Balance 875 ml Intake Oral 875 ml # Voids 3 Result Diagram: 04/12/16 0620 04/12/16 0620 Imaging Last Impressions SPECT Scan-Bone Nuclear Medicine 04/12/16 0000 Signed Impressions: Service Date/Time: Tuesday, April 12, 2016 15:10 - CONCLUSION: Uptake in the anterior right chest I suspect are a few healing rib fractures. Left L3 uptake in the transverse likely healing fracture. Diffuse uptake at T12 but not very impressive. No other acute fractures identified. Rafael Ernst MD Lower Extremity Ultrasound 04/12/16 0000 Signed Impressions: Service Date/Time: Tuesday, April 12, 2016 08:22 - CONCLUSION: Normal examination. Small Nina's cyst on the left. Rafael Ernst MD Thoracic Spine CT 04/11/16 1822 Signed Impressions: Service Date/Time: Monday, April 11, 2016 18:38 - CONCLUSION: 1. Mild compression deformities of T8 and T12 which appear subacute or old and are associated with Schmorl's nodes. The bones are diffusely osteopenic. There is no significant bony canal stenosis. Incidental note made of a left transverse process fracture of L3. There is also a chronic appearing central depression in the superior endplate of L3. Edward Peterson MD Lumbar Spine X-Ray 04/11/16 1606 Signed Impressions: Service Date/Time: Monday, April 11, 2016 16:23 - CONCLUSION: Degenerative changes as described above. The compression at T12 is indeterminate in age. MRI could be used to stage this. Quintin Tavera MD FACR Hip and Pelvis X-Ray 04/11/16 1603 Signed Impressions: Service Date/Time: Monday, April 11, 2016 16:23 - CONCLUSION: Degenerative changes, negative for fracture. Quintin Tavera MD FACR Objective Remarks GENERAL: Well-developed well-nourished. In no acute distress. SKIN: Warm and dry. No lesions noted. HEENT: Normocephalic. Pupils equal and round. Mucous membranes pink and moist. CARDIOVASCULAR: Regular rate and rhythm. No murmur appreciated. RESPIRATORY: No accessory muscle use. Clear to auscultation. Breath sounds equal bilaterally. GASTROINTESTINAL: Abdomen soft, non-tender, nondistended. Bowel sounds x4. MUSCULOSKELETAL: No obvious deformities. No clubbing or cyanosis. Bilateral lower extremity edema 2+ NEUROLOGICAL: Awake and alert. No focal neurological deficits. Moves upper and lower extremities spontaneously. Normal speech. Strength 5/5. PSYCHIATRIC: Appropriate mood and affect; insight and judgment fair to normal. A/P Problem List: (1) Temporary low platelet count ICD Code: D69.6 Status: Acute (2) Lumbar pain ICD Code: M54.5 Status: Acute (3) HTN (hypertension) ICD Code: I10 Status: Chronic (4) A-fib ICD Code: I48.91 Status: Chronic (5) Dementia ICD Code: F03.90 Status: Chronic Assessment and Plan 85 y/o with a history of HTN, DM, CHF and CVA presented with: Thrombocytopenia, likely reactive Labs: platelet 76 , last admission in 04/01/2016 count was 175. Improved to 143. Ultrasound negative for DVT. HIT panel negative -Stable L3 transverse process fx Images: Thoracic spine CT shows mild compression deformities of T8 and T12 which appear subacute or old and are associated with Schmorl's nodes. The bones are diffusely osteopenic. There is no significant bony canal stenosis. Incidental note made of a left transverse process fracture of L3. There is also a chronic appearing central depression in the superior endplate of L3. Bone scan showed uptake in the anterior right chest with suspected healing rib fractures, left L3 uptake in the transverse likely healing fracture, diffuse uptake at T12, but reportedly not very impressive. -Neurosurgery consulted, recommended pain control and physical therapy, no intervention, ordered bone scan -Case management consulted for rehabilitation placement Hypertension/atrial fibrillation: Chronic, stable. -Continue home amiodarone and metoprolol. Monitor and adjust meds as needed. Dementia, chronic Oriented 3, but does have some problems with recall -Cont home Namenda Hypokalemia: Potassium 3.4, given oral potassium replacement. DVT prophylaxis: TEDs. Will not tolerate SCDs with lower extremity edema. Chemoprophylaxis contraindicated with thrombocytopenia. Written by Florentino Salazar, acting as scribe for Dr. Nelson on 04/13/16 at 09:37. The documentation accurately reflects the work performed [id number] by me Dr. Nelson on 04/13/16 at 09:37. Discharge Planning 1300 case management discussed with the patient and the daughter, wants patient to home with [facility]. Discussed with the patient, requesting to go home. Offered again SNF placement, patient refuses. She states her daughter is having to take care of her and she has a hospital bed at home. Case management to arrange [facility] nursing, PT, foster care social worker. Discharge patient to home with [facility] Condition on discharge: Improved Heart healthy Diet as tolerated Regular activity Rx written: Tramadol Follow-up with primary care physician Problem Qualifiers (1) HTN (hypertension): Qualified Code: I10 - Essential hypertension Florentino Salazar Apr 13, 2016 09:38 Risa Nelson MD Apr 13, 2016 13:29
--- NOTE | 2016-04-13 12:57 | HHI.FF ---
Face to Face Verification Diagnosis: (1) HTN (hypertension) (2) Dementia (3) Lumbar pain (4) Closed L3 vertebral fracture (5) Acute thoracic back pain (6) Fall Physical Therapy Order: Evaluate and Treat, Improve ambulation, Strength and gait training Home Health Nursing Order: Medical education Signs/symptoms of disease process Medication education-adverse effect Nursing assessment with vital signs Certified Retinal Angiographer Order: To Evaluate: Living conditions/environment, Support services Order: To Provide: Long range planning, Community services I have seen patient Mary Alice Keller on 04/13/16. My clinical findings support the need for the requested home health care services because: Ltd mobility - disease progression Deconditioned w/ increased weakness Limited ability to care for self Need for psychosocial assistance Impaired cognition/judgement High risk of falls I certify that my clinical findings support that this patient is homebound because: Impaired cognitive ability/safety Unsteady gait/balance Need for psychosocial assistance Florentino Salazar Apr 13, 2016 12:57 Rias Nelson MD Apr 13, 2016 13:29
--- NOTE | 2016-04-13 16:38 | HHI.NSPN ---
History Chief Complaint: back pain Interval History 85 yr old lives with her daughter who is herself sick with lung CA. She fell at home and a bone scan yesterday indicates an L3 fracture consistent with her back pain location, She is alert but has dementia and increased tone in the arms and legs. She has not walked since admission. Review of Systems General: Negative for: fever, chills, insomnia Respiratory: Negative for: shortness of breath, cough, sputum Cardiovascular: Negative for: chest pain, palpitations, orthopnea Gastrointestinal: Negative for: nausea, vomitting, diarrhea, constipation Exam Results Vital Signs Date Time Temp Pulse Resp B/P Pulse Ox O2 Delivery O2 Flow Rate FiO2 04/13/16 16:00 98.3 60 20 135/66 95 04/11/16 16:15 Nasal Cannula 2 Intake and Output 04/12/16 04/12/16 04/13/16 08:00 16:00 00:00 Intake Total 875 ml Balance 875 ml Physical Examination Alert, speech fluent, follows commands, c/o back pain Motor strength good in both hip flexors, quads, anterior tibialis and EHL bilaterally No radicular numbness, sensation is present in both lower extremities. No Babinski Lab, Micro, Other Results Last Impressions SPECT Scan-Bone Nuclear Medicine 04/12/16 0000 Signed Impressions: Service Date/Time: Tuesday, April 12, 2016 15:10 - CONCLUSION: Uptake in the anterior right chest I suspect are a few healing rib fractures. Left L3 uptake in the transverse likely healing fracture. Diffuse uptake at T12 but not very impressive. No other acute fractures identified. Rafael Ernst MD Lower Extremity Ultrasound 04/12/16 0000 Signed Impressions: Service Date/Time: Tuesday, April 12, 2016 08:22 - CONCLUSION: Normal examination. Small Nina's cyst on the left. Rafael Ernst MD Thoracic Spine CT 04/11/16 1822 Signed Impressions: Service Date/Time: Monday, April 11, 2016 18:38 - CONCLUSION: 1. Mild compression deformities of T8 and T12 which appear subacute or old and are associated with Schmorl's nodes. The bones are diffusely osteopenic. There is no significant bony canal stenosis. Incidental note made of a left transverse process fracture of L3. There is also a chronic appearing central depression in the superior endplate of L3. Edward Peterson MD Lumbar Spine X-Ray 04/11/16 1606 Signed Impressions: Service Date/Time: Monday, April 11, 2016 16:23 - CONCLUSION: Degenerative changes as described above. The compression at T12 is indeterminate in age. MRI could be used to stage this. Quintin Tavera MD FACR Hip and Pelvis X-Ray 04/11/16 1603 Signed Impressions: Service Date/Time: Monday, April 11, 2016 16:23 - CONCLUSION: Degenerative changes, negative for fracture. Quintin Tavera MD FACR Medical Decision Making Impression and Plan L3 fracture, acute, appears stable but is causing pain. She is unsteady at baseline and is at risk for repeated fall and re admission if sent home. LSO brace and PT is ordered. She should be cleared by PT prior to discharge. Total Minutes: 10 Ahmet Michel Apr 13, 2016 16:38
[2016-04-14] VITALS (7 sets, daily range): BP systolic 105–141; BP diastolic 56–75; PULSE 59–62; RESP 18–20; TEMP 96–98.8; O2SAT 95–98
[2016-04-14] MEDS: ASPIRIN 81 MG CHEW TAB CHEW SCH (08:39)
[2016-04-14] MEDS: ACETAMINOPHEN 500 MG CPLT PO SCH ×4 (08:39→21:20)
[2016-04-14] MEDS: SERTRALINE HCL 100 MG TAB PO SCH (08:39)
[2016-04-14] MEDS: traMADol HCL 50 MG TAB PO PRN ×2 (08:39→18:03)
[2016-04-14] MEDS: MEMANTINE HCL 10 MG TAB PO SCH ×2 (08:40→21:20)
[2016-04-14] MEDS: AMIODARONE 200 MG TAB PO SCH ×2 (08:40→21:20)
[2016-04-14] MEDS: SODIUM CHLORIDE 0.9% FLUSH 5 ML FLUSH FLUSH SCH ×2 (08:40→21:20)
[2016-04-14] MEDS: METOPROLOL TARTRATE 25 MG TAB PO SCH ×2 (08:40→21:00)
[2016-04-14] MEDS: PRAVASTATIN SOD 20 MG TAB PO SCH (08:40)
--- NOTE | 2016-04-14 12:36 | HHI.PR ---
Subjective Remarks Follow up for fall with back pain, transverse process fracture. The patient reports some chest pain over the pacemaker site since her fall. The pain is constant, worse with deep breath. Her back pain is improved. Objective Vitals Vital Signs Date Time Temp Pulse Resp B/P Pulse Ox O2 Delivery O2 Flow Rate FiO2 04/14/16 08:00 96.3 60 18 141/64 96 04/14/16 06:10 97.2 60 20 105/56 97 04/14/16 01:38 62 04/14/16 00:15 97.1 60 18 117/69 98 04/13/16 20:19 97.2 62 20 137/79 97 04/13/16 16:00 98.3 60 20 135/66 95 04/13/16 12:34 98.9 87 21 141/72 99 I/O 04/13/16 04/13/16 04/13/16 04/14/16 04/14/16 04/14/16 07:00 15:00 23:00 07:00 15:00 23:00 Intake Total 780 ml Balance 780 ml Intake Oral 780 ml Result Diagram: 04/12/16 0620 04/12/16 0620 Imaging Last Impressions SPECT Scan-Bone Nuclear Medicine 04/12/16 0000 Signed Impressions: Service Date/Time: Tuesday, April 12, 2016 15:10 - CONCLUSION: Uptake in the anterior right chest I suspect are a few healing rib fractures. Left L3 uptake in the transverse likely healing fracture. Diffuse uptake at T12 but not very impressive. No other acute fractures identified. Rafael Ernst MD Lower Extremity Ultrasound 04/12/16 0000 Signed Impressions: Service Date/Time: Tuesday, April 12, 2016 08:22 - CONCLUSION: Normal examination. Small Nina's cyst on the left. Rafael Ernst MD Thoracic Spine CT 04/11/16 1822 Signed Impressions: Service Date/Time: Monday, April 11, 2016 18:38 - CONCLUSION: 1. Mild compression deformities of T8 and T12 which appear subacute or old and are associated with Schmorl's nodes. The bones are diffusely osteopenic. There is no significant bony canal stenosis. Incidental note made of a left transverse process fracture of L3. There is also a chronic appearing central depression in the superior endplate of L3. Edward Peterson MD Lumbar Spine X-Ray 04/11/16 1606 Signed Impressions: Service Date/Time: Monday, April 11, 2016 16:23 - CONCLUSION: Degenerative changes as described above. The compression at T12 is indeterminate in age. MRI could be used to stage this. Quintin Tavera MD FACR Hip and Pelvis X-Ray 04/11/16 1603 Signed Impressions: Service Date/Time: Monday, April 11, 2016 16:23 - CONCLUSION: Degenerative changes, negative for fracture. Quitnin Tavera MD FACR Objective Remarks GENERAL: Well-nourished, well-developed elderly female patient in [facility]. SKIN: Warm and dry. No rash. HEAD: Normocephalic. Atraumatic. EYES: Pupils equal and round. No scleral icterus. No injection or drainage. ENT: No nasal bleeding or discharge. Mucous membranes pink and moist. NECK: Supple. Trachea midline. . CARDIOVASCULAR: Regular rate and rhythm. S1, S2 noted. No murmur appreciated. Pacer site nontender to palpation, no overlying erythema/edema. RESPIRATORY: No accessory muscle use. Clear to auscultation. Breath sounds equal bilaterally. GASTROINTESTINAL: Abdomen soft, non-tender, nondistended. Normoactive bowel sounds x4. MUSCULOSKELETAL: No obvious deformities. Extremities without clubbing, cyanosis , or edema. NEUROLOGICAL: Awake and alert. No obvious cranial nerve deficits. Motor grossly within normal limits. Normal speech. PSYCHIATRIC: Appropriate mood and affect; insight and judgment normal. Medications and IVs Current Medications Medications (Trade) Dose Ordered Sig/Uziel Route Start Time Stop Time Status Last Admin (NS Flush) 2 ml UNSCH PRN FLUSH 04/11/16 20:30 (NS Flush) 2 ml BID FLUSH 04/11/16 21:00 04/14/16 08:40 (Zofran Inj) 4 mg Q6H PRN IVP 04/11/16 20:30 (Narcan Inj) 0.4 mg UNSCH PRN IV 04/11/16 20:30 (Cordarone) 400 mg BID PO 04/12/16 09:00 04/14/16 08:40 (Aspirin Chew) 81 mg DAILY CHEW 04/12/16 09:00 04/14/16 08:39 (Lopressor) 25 mg BID PO 04/12/16 09:00 04/14/16 08:40 (Pravachol) 20 mg DAILY PO 04/12/16 09:00 04/14/16 08:40 (Zoloft) 100 mg DAILY PO 04/12/16 09:00 04/14/16 08:39 (Namenda) 10 mg BID PO 04/12/16 09:00 04/14/16 08:40 (Ultram) 50 mg Q8H PRN PO 04/12/16 13:45 04/14/16 18:03 (Tylenol) 500 mg QID PO 04/12/16 18:00 04/14/16 18:04 A/P Problem List: (1) Temporary low platelet count ICD Code: D69.6 Status: Acute (2) Lumbar pain ICD Code: M54.5 Status: Acute (3) HTN (hypertension) ICD Code: I10 Status: Chronic (4) A-fib ICD Code: I48.91 Status: Chronic (5) Dementia ICD Code: F03.90 Status: Chronic Assessment and Plan 85 y/o with a history of HTN, DM, CHF and CVA presented with: Thrombocytopenia, likely reactive Labs: platelet 76 , last admission in 04/01/2016 count was 175. Improved to 143. Ultrasound negative for DVT. HIT panel negative -Stable L3 transverse process fx Images: Thoracic spine CT shows mild compression deformities of T8 and T12 which appear subacute or old and are associated with Schmorl's nodes. The bones are diffusely osteopenic. There is no significant bony canal stenosis. Incidental note made of a left transverse process fracture of L3. There is also a chronic appearing central depression in the superior endplate of L3. Bone scan showed uptake in the anterior right chest with suspected healing rib fractures, left L3 uptake in the transverse likely healing fracture, diffuse uptake at T12, but reportedly not very impressive. -Neurosurgery consulted, recommended pain control and physical therapy, no intervention, ordered bone scan as above -Continue TLSO brace -Case management consulted for rehabilitation placement however family wants to take the patient home with [facility], case management assisting Hypertension/atrial fibrillation: Chronic, stable. -Continue home amiodarone and metoprolol. Monitor and adjust meds as needed. Dementia, chronic Oriented 3, but does have some problems with recall -Cont home Namenda Hypokalemia: Potassium 3.4, given oral potassium replacement. Chest pain: suspect related to fall however will rule out ACS with serial cardiac enzymes x2 DVT prophylaxis: TEDs. Will not tolerate SCDs with lower extremity edema. Chemoprophylaxis contraindicated with thrombocytopenia. Written by Yue Akhtar, acting as scribe for Dr. Navarro on 04/14/16 at 12: 33. Attending Statement The documentation accurately reflects the work performed [id number] by me on at 12:33. Problem Qualifiers (1) HTN (hypertension): Qualified Code: I10 - Essential hypertension Yue Akhtar PA-C Apr 14, 2016 12:36 Deigo Ralph MD Apr 19, 2016 13:37
[2016-04-15 01:41] VITALS: PULSE 60
[2016-04-15 04:07] VITALS: BP 131/63; PULSE 60; RESP 18; TEMP 98; O2SAT 98
[2016-04-15] MEDS: traMADol HCL 50 MG TAB PO PRN (06:56)
[2016-04-15 08:08] VITALS: BP 133/70; PULSE 60; RESP 18; TEMP 96.8; O2SAT 94
--- NOTE | 2016-04-15 08:27 | HHI.DS ---
cc: Dr. Kimo Haro Discharge Summary Admission Date Apr 11, 2016 at 20:36 Discharge Date: Apr 15, 2016 Admitting Diagnosis Throbocytopenia/Fall with Acute thoracic pain (1) Closed L3 vertebral fracture ICD Code: S32.039A Diagnosis: Principal (2) Lumbar pain ICD Code: M54.5 Diagnosis: Principal (3) Temporary low platelet count ICD Code: D69.6 Diagnosis: Secondary (4) HTN (hypertension) ICD Code: I10 Diagnosis: Secondary (5) A-fib ICD Code: I48.91 Diagnosis: Secondary (6) Dementia ICD Code: F03.90 Diagnosis: Secondary Procedures None. Brief History - From Admission History taken from patient, emr and er physician. 85 y/o female with a history of HTN, dementia, chf, and cva was brought to ER by [facility] after a fall at the [facility] and she is complaining of right hip pain and back pain. Patient is somewhat of a poor historian when discussing history and current events. Patient states she got up to go to the bathroom and was in a hurry when she slipped and fell. She states she fell on her butt and is complaining of right hip and back pain. She denies any chest pain, sob, fever or chills. She also denies any weakness or dizziness. She is unsure of her history, put does know that she has a pacemaker. She is currently at the [facility] for rehab. CBC/BMP: 04/12/16 0620 04/12/16 0620 Imaging Last Impressions SPECT Scan-Bone Nuclear Medicine 04/12/16 0000 Signed Impressions: Service Date/Time: Tuesday, April 12, 2016 15:10 - CONCLUSION: Uptake in the anterior right chest I suspect are a few healing rib fractures. Left L3 uptake in the transverse likely healing fracture. Diffuse uptake at T12 but not very impressive. No other acute fractures identified. Rafael Ernst MD Lower Extremity Ultrasound 04/12/16 0000 Signed Impressions: Service Date/Time: Tuesday, April 12, 2016 08:22 - CONCLUSION: Normal examination. Small Nina's cyst on the left. Rafael A. Sevigny, MD Thoracic Spine CT 04/11/16 1822 Signed Impressions: Service Date/Time: Monday, April 11, 2016 18:38 - CONCLUSION: 1. Mild compression deformities of T8 and T12 which appear subacute or old and are associated with Schmorl's nodes. The bones are diffusely osteopenic. There is no significant bony canal stenosis. Incidental note made of a left transverse process fracture of L3. There is also a chronic appearing central depression in the superior endplate of L3. Edward Peterson MD Lumbar Spine X-Ray 04/11/16 1606 Signed Impressions: Service Date/Time: Monday, April 11, 2016 16:23 - CONCLUSION: Degenerative changes as described above. The compression at T12 is indeterminate in age. MRI could be used to stage this. Quintin Tavera MD FACR Hip and Pelvis X-Ray 04/11/16 1603 Signed Impressions: Service Date/Time: Monday, April 11, 2016 16:23 - CONCLUSION: Degenerative changes, negative for fracture. Quintin Tavera MD FACR PE at Discharge GENERAL: Well-nourished, well-developed elderly female patient in [facility]. SKIN: Warm and dry. No rash. HEAD: Normocephalic. Atraumatic. EYES: Pupils equal and round. No scleral icterus. No injection or drainage. ENT: No nasal bleeding or discharge. Mucous membranes pink and moist. NECK: Supple. Trachea midline. . CARDIOVASCULAR: Regular rate and rhythm. S1, S2 noted. No murmur appreciated. Pacer site nontender to palpation, no overlying erythema/edema. RESPIRATORY: No accessory muscle use. Clear to auscultation. Breath sounds equal bilaterally. GASTROINTESTINAL: Abdomen soft, non-tender, nondistended. Normoactive bowel sounds x4. MUSCULOSKELETAL: No obvious deformities. Extremities without clubbing, cyanosis , or edema. NEUROLOGICAL: Awake and alert. No obvious cranial nerve deficits. Motor grossly within normal limits. Normal speech. PSYCHIATRIC: Appropriate mood and affect; insight and judgment normal. Pt update on day of discharge The patient reports feeling well this morning. She denies any further chest pains overnight. He low back pain is controlled by pain medications, she states the Tramadol has been helping. She is ready to go home. She has been improving with physical therapy. She plans to live at home with her daughter. DME has already been delivered to the home, including a hospital bed. Hospital Course 85 y/o with a history of HTN, DM, CHF and CVA presented with: Thrombocytopenia, likely reactive. Platelet 76 , last admission in 04/01/2016 count was 175. Improved to 143. Ultrasound negative for DVT. HIT panel negative. Stable. L3 transverse process fx: Thoracic spine CT shows mild compression deformities of T8 and T12 which appear subacute or old and are associated with Schmorl's nodes; bones are diffusely osteopenic; no significant bony canal stenosis; Incidental note made of a left transverse process fracture of L3; also a chronic appearing central depression in the superior endplate of L3. Bone scan showed uptake in the anterior right chest with suspected healing rib fractures, left L3 uptake in the transverse likely healing fracture, diffuse uptake at T12 , but reportedly not very impressive. Neurosurgery was consulted, recommended pain control and physical therapy, no further intervention. Continue TLSO brace. Case management consulted for rehabilitation placement however family wants to take the patient home with [facility], case management assisting. Patient has improved and PT now recommends [facility] at discharge. Hypertension/atrial fibrillation: Chronic, stable. Continued home amiodarone and metoprolol. Monitor and adjust meds as needed. Dementia, chronic. Oriented 3, but does have some problems with recall. Cont home Namenda Hypokalemia: Potassium 3.4, given oral potassium replacement. Chest pain: suspect related to fall however will ruled out ACS with negative serial cardiac enzymes x2. DVT prophylaxis: TEDs. Will not tolerate SCDs with lower extremity edema. Chemoprophylaxis contraindicated with thrombocytopenia. Pt Condition on Discharge: Stable Discharge Disposition: Disch w/ Home Health Serv Discharge Time: > 30 minutes Discharge Instructions DIET: Follow Instructions for: As Tolerated, No Restrictions Activities you can perform: Regular-No Restrictions, Weight Bearing as Gunnar Follow up Referrals: Neurosurgery - 3 Weeks with Ahmet Michel PCP Follow-up - 2-3 Days with Kimo Haro MD New Medications: Tramadol (Tramadol) 50 Mg Tab 50 MG PO Q8H PRN PAIN #30 Ref 0 TAB Continued Medications: Amiodarone (Amiodarone) 200 Mg Tab 400 MG PO BID control heart rate Days 30 TAB Aspirin (Aspirin) 81 Mg Chew 81 MG CHEW DAILY Ref 0 TAB Lactobacillus (Probiotic Acidophilus Sup) 1 Tab Tab 1 TAB PO Memantine Er (Namenda Xr) 28 Mg Caper 28 MG PO DAILY Alzheimer Disease #30 Ref 0 CAP Metoprolol Tartrate (Metoprolol Tartrate) 50 Mg Tab 25 MG PO BID #30 Ref 0 TAB Pravastatin (Pravastatin) 20 Mg Tab 20 MG PO DAILY Cholesterol Management #30 Ref 0 TAB Sertraline (Zoloft) 50 Mg Tab 100 MG PO DAILY #30 Ref 0 TAB Yue Akhtar PA-C Apr 15, 2016 08:27
[2016-04-15] MEDS: METOPROLOL TARTRATE 25 MG TAB PO SCH (09:29)
[2016-04-15] MEDS: ACETAMINOPHEN 500 MG CPLT PO SCH ×2 (09:29→13:00)
[2016-04-15] MEDS: SODIUM CHLORIDE 0.9% FLUSH 5 ML FLUSH FLUSH SCH (09:29)
[2016-04-15] MEDS: PRAVASTATIN SOD 20 MG TAB PO SCH (09:30)
[2016-04-15] MEDS: SERTRALINE HCL 100 MG TAB PO SCH (09:30)
[2016-04-15] MEDS: AMIODARONE 200 MG TAB PO SCH (09:30)
[2016-04-15] MEDS: ASPIRIN 81 MG CHEW TAB CHEW SCH (09:30)
[2016-04-15] MEDS: MEMANTINE HCL 10 MG TAB PO SCH (09:30)
[2016-04-15 12:09] VITALS: BP 123/61; PULSE 61; RESP 18; TEMP 97.2; O2SAT 95
--- NOTE | 2016-04-15 13:49 | EKG ---
Date Performed: 04/14/2016 Time Performed: 14:30:37 PTAGE: 85 years EKG: ELECTRONIC ATRIAL PACEMAKER MARKED LEFT AXIS DEVIATION ANTEROSEPTAL MYOCARDIAL INFARCTION A BNORMAL ECG PREVIOUS TRACING : 04/11/2016 16.53 Since previous tracing, no significant change noted DOCTOR: Cynthia Clark Interpretating Date/Time 04/15/2016 13:43:17
[2016-04-15 14:01] VITALS: PULSE 70
== END 2016-04-15 18:37 | disposition home or self-care (01) ==
LOC: NEPC 15:50 → NEDA 20:36 → NEPGCP 22:12 → NEPFCDU 04-13 00:34 → NEPGCP 04-13 00:35
PROVIDERS: ADMIT Hospitalist; ATTEND Hospitalist
DX: S32.039A Unspecified fracture of third lumbar vertebra, initial encounter for closed fracture (principal); D69.6 Thrombocytopenia, unspecified; I48.2 Chronic atrial fibrillation; I25.10 Atherosclerotic heart disease of native coronary artery without angina pectoris; I10 Essential (primary) hypertension; I50.9 Heart failure, unspecified; E87.6 Hypokalemia; E11.9 Type 2 diabetes mellitus without complications; E78.00 Pure hypercholesterolemia, unspecified; F03.90 Unspecified dementia, unspecified severity, without behavioral disturbance, psychotic disturbance, mood disturbance, and anxiety; M81.0 Age-related osteoporosis without current pathological fracture; Z80.1 Family history of malignant neoplasm of trachea, bronchus and lung; Z86.73 Personal history of transient ischemic attack (TIA), and cerebral infarction without residual deficits; Z95.0 Presence of cardiac pacemaker; Z88.2 Allergy status to sulfonamides; W01.0XXA Fall on same level from slipping, tripping and stumbling without subsequent striking against object, initial encounter
CPT/HCPCS: 72100; 72128; 73502; 78306; 78320; 78399; 80048; 80053; 82550; 82652; 84484; 85025; 85610; 85652; 85730; 86022; 93005; 93970; 97110; 97162; 97530; 99285; A9503; G0378; G8987; G8988; J2405; L0484

== ENCOUNTER 2016-05-11 09:40 | Inpatient (IN) | payer MEDICARE, BC ==
[~2016-05-11] VITALS: Ht 167.6 cm; Wt 83.0 kg
[2016-05-11] VITALS (7 sets, daily range): BP systolic 115–170; BP diastolic 70–84; PULSE 65–89; RESP 16–20; TEMP 96.3–97.7; O2SAT 94–96
[~2016-05-11 09:40] MED LIST changes: +TRAM50TA PO
--- NOTE | 2016-05-11 10:09 | PD ---
HPI Chief Complaint: Seizure Time Seen by Provider: 10:08 Travel History International Travel<30 days: No Contact w/Intl Traveler<30days: No Traveled to known affect area: No History of Present Illness HPI 85-year-old female came to the emergency room brought by EMS for a seizure. This is a possible new onset seizure. Patient lives with her daughter who called 911 and described a tonic-clonic seizure episode. Patient has baseline dementia. As per the daughter's description the seizure lasted for less than a minute and when EMS arrived she said she was back to her baseline. Here patient is pleasantly confused which is probably had dementia. She was covered in stool after being incontinent. She does not appear to be in any distress and doesn't seem to be complaining of any pain. Rectal temperature was 99.9. Rest of her vital signs were within normal limit as well. Patient is unable to give any meaningful history at this point. History was obtained from the EMS. FORMERLY [facility], [facility] Past Medical History Narrative Medical List of her past medical, surgical, social and family history as reviewed from the nursing note. Arthritis: Yes Asthma: No Blood Disorders: No Anxiety: Yes Depression: Yes Heart Rhythm Problems: Yes Cancer: No Cardiac Catheterization: Yes Cardiovascular Problems: Yes High Cholesterol: Yes Chest Pain: Yes (with anxiety) Congestive Heart Failure: Yes Cerebrovascular Accident: Yes Dementia: Yes Diabetes: No Diminished Hearing: No Endocrine: No Gastrointestinal Disorders: Yes (ABD. PAIN,) GERD: No Genitourinary: No Headaches: No Hepatitis: No Hiatal Hernia: Yes (?REPAIRED) Heparin Induced Thrombocytopen: No Hypertension: Yes (DENIES) Immune Disorder: No Implanted Vascular Access Dvce: Yes Musculoskeletal: Yes Neurologic: Yes Psychiatric: Yes Reproductive: No Respiratory: No Immunizations Current: Yes Migraines: No Seizures: No Thyroid Disease: No Ulcer: No Tetanus Vaccination: Unknown Influenza Vaccination: Yes PNEUMOCCOCAL Vaccine (Year): 1 ?: Not Menopausal: Yes : 2 Para: 2 Miscarriage: 0 : 0 Past Surgical History Abdominal Surgery: Yes (hysterectomy,gall bladder,appendectomy) AICD: Yes Appendectomy: Yes Body Medical Devices: PLASTIC CRANIAL PLATE, AICD Cardiac Surgery: Yes (pacer/defib x2) Cholecystectomy: Yes Coronary Artery Bypass Graft: No Ear Surgery: No Endocrine Surgery: Yes (pituitary tumor removed) Eye Surgery: Yes (cataracts) Genitourinary Surgery: No Gynecologic Surgery: Yes (hysterectomy) Hysterectomy: Yes Joint Replacement: No Neurologic Surgery: Yes (plate placed) Oral Surgery: No Pacemaker: Yes Thoracic Surgery: No Tonsillectomy: Yes Other Surgery: Yes (hiatal hernia, PACER PLACEMENT 01/2009. pituitary gland removed) Family History Family Myocardial Infarction: Yes (father-, father had pacemaker) Social History Alcohol Use: No Tobacco Use: No Substance Use: No Allergies-Medications (Allergen,Severity, Reaction): Coded Allergies: Darvocet-N 100 (Verified Allergy, Severe, HYPOTENSION, 05/11/16) Darvon (Verified Allergy, Severe, emotional duress & hypotension, 05/11/16) Sulfa (Verified Allergy, Unknown, does no know, 05/11/16) Lortab (Verified Adverse Reaction, Severe, emotional duress & hypotension , 05/11/16) Uncoded Allergies: MOST NARCOTICS CAUSE SHOCK (Allergy, Severe, 08/30/07) PACEMAKER (Adverse Reaction, Unknown, mri precaution pacemaker, 10/21/14) mri precaution non compatible pacemaker Comments List of allergies reviewed from the nursing note. Reported Meds & Prescriptions Reported Meds & Active Scripts Active Namenda Xr (Memantine) 28 Mg Caper 28 Mg PO DAILY Amiodarone (Amiodarone HCl) 200 Mg Tab 400 Mg PO BID 30 Days Reported Zoloft (Sertraline HCl) 50 Mg Tab 100 Mg PO DAILY Pravastatin 20 Mg Tab 20 Mg PO DAILY Probiotic Acidophilus Sup (Lactobacillus) 1 Tab Tab 1 Tab PO Metoprolol Tartrate 50 Mg Tab 25 Mg PO BID Aspirin 81 Mg Chew 81 Mg CHEW DAILY Narrative Medication List of medications reviewed from the nursing note. Review of Systems Except as stated in HPI: all other systems reviewed are Neg Physical Exam Narrative GENERAL: Awake, dementia, no obvious distress, elderly, disheveled SKIN: Warm and dry. HEAD: Atraumatic. Normocephalic. EYES: Pupils equal and round. No scleral icterus. No injection or drainage. ENT: No nasal bleeding or discharge. Mucous membranes pink and moist. NECK: Trachea midline. No JVD. CARDIOVASCULAR: Regular rate and rhythm. No murmur appreciated. RESPIRATORY: No accessory muscle use. Clear to auscultation. Breath sounds equal bilaterally. GASTROINTESTINAL: Abdomen soft, non-tender, nondistended. Hepatic and splenic margins not palpable. MUSCULOSKELETAL: No obvious deformities. No clubbing. No cyanosis. No edema. NEUROLOGICAL: Awake and dementia ,no obvious cranial nerve deficits. Motor grossly within normal limits. Normal speech. PSYCHIATRIC: Appropriate mood and affect; insight and judgment normal. Data Data Last Documented VS Vital Signs Date Time Temp Pulse Resp B/P Pulse Ox O2 Delivery O2 Flow Rate FiO2 05/11/16 12:00 72 16 148/78 95 Room Air 05/11/16 09:44 97.7 Orders Electrocardiogram (05/11/16 10:26) Complete Blood Count With Diff (05/11/16 10:26) Comprehensive Metabolic Panel (05/11/16 10:26) Creatine Kinase (Cpk) (05/11/16 10:26) Prothrombin Time / Inr (Pt) (05/11/16 10:26) Troponin I (05/11/16 10:26) Thyroid Stimulating Hormone (05/11/16 10:26) Lactic Acid Sepsis Protocol (05/11/16 10:26) Urinalysis - C+S If Indicated (05/11/16 10:26) Blood Culture (05/11/16 10:26) Ct Brain W/O Iv Contrast(Rout) (05/11/16 10:26) Blood Glucose (05/11/16 10:26) Ecg Monitoring (05/11/16 10:26) Iv Access Insert/Monitor (05/11/16 10:26) Oximetry (05/11/16 10:26) Sodium Chloride 0.9% Flush (Ns Flush) (05/11/16 10:30) Sodium Chlorid 0.9% 500 Ml Inj (Ns 500 M (05/11/16 10:30) ^ Straight Catheter (05/11/16 10:26) Urine Culture (05/11/16 10:30) Potassium Chloride (Kcl) (05/11/16 11:30) Potassium Chlor 20 Meq Premix (Kcl 20 Me (05/11/16 11:30) Sodium Chlor 0.9% 1000 Ml Inj (Ns 1000 M (05/11/16 11:30) Ceftriaxone Inj (Rocephin Inj) (05/11/16 11:30) Levothyroxine (Synthroid) (05/11/16 11:30) Chest, Single Ap (05/11/16 ) Ketorolac Inj (Toradol Inj) (05/11/16 12:15) Admit Order (Ed Use Only) (05/11/16 12:12) Labs Laboratory Tests Test 05/11/16 10:30 Prothrombin Time 13.4 SEC Prothromb Time International 1.2 RATIO Ratio Sodium Level 142 MEQ/L Potassium Level 2.4 MEQ/L Chloride Level 101 MEQ/L Carbon Dioxide Level 24.3 MEQ/L Anion Gap 17 MEQ/L Blood Urea Nitrogen 11 MG/DL Creatinine 0.63 MG/DL Estimat Glomerular Filtration 90 ML/MIN Rate Random Glucose 110 MG/DL Lactic Acid Level 1.4 mmol/L Calcium Level 8.7 MG/DL Total Bilirubin 0.6 MG/DL Aspartate Amino Transf 12 U/L (AST/SGOT) Alanine Aminotransferase 13 U/L (ALT/SGPT) Alkaline Phosphatase 124 U/L Total Creatine Kinase 46 U/L Troponin I 0.07 NG/ML Total Protein 6.4 GM/DL Albumin 3.0 GM/DL Thyroid Stimulating Hormone 10.900 uIU/ML 3rd Gen White Blood Count 9.2 TH/MM3 Red Blood Count 5.19 MIL/MM3 Hemoglobin 15.5 GM/DL Hematocrit 45.0 % Mean Corpuscular Volume 86.6 FL Mean Corpuscular Hemoglobin 29.8 PG Mean Corpuscular Hemoglobin 34.5 % Concent Red Cell Distribution Width 14.1 % Platelet Count 239 TH/MM3 Mean Platelet Volume 9.0 FL Neutrophils (%) (Auto) 83.4 % Lymphocytes (%) (Auto) 9.1 % Monocytes (%) (Auto) 6.4 % Eosinophils (%) (Auto) 0.6 % Basophils (%) (Auto) 0.5 % Neutrophils # (Auto) 7.6 TH/MM3 Lymphocytes # (Auto) 0.8 TH/MM3 Monocytes # (Auto) 0.6 TH/MM3 Eosinophils # (Auto) 0.1 TH/MM3 Basophils # (Auto) 0.0 TH/MM3 CBC Comment DIFF FINAL Differential Comment Urine Color YELLOW Urine Turbidity CLOUDY Urine pH 6.0 Urine Specific Cando 1.024 Urine Protein 30 mg/dL Urine Glucose (UA) NEG mg/dL Urine Ketones 10 mg/dL Urine Occult Blood SMALL Urine Nitrite NEG Urine Bilirubin SMALL Urine Urobilinogen 2.0 MG/DL Urine Leukocyte Esterase LARGE Urine RBC 2 /hpf Urine WBC 57 /hpf Urine WBC Clumps OCC Urine Squamous Epithelial 3 /hpf Cells Urine Calcium Oxalate Crystals OCC /hpf Urine Bacteria MANY /hpf Urine Hyaline Casts 10 /lpf Urine Mucus MANY /lpf Microscopic Urinalysis Comment CATH-CULTURE IND MDM Medical Decision Making Medical Screen Exam Complete: Yes Emergency Medical Condition: Yes Medical Record Reviewed: Yes Interpretation(s) Twelve-lead EKG was reviewed by me. Normal sinus rhythm, left axis deviation, poor R-wave progression, questionable U waves. Heart rate of 69 bpm. Differential Diagnosis Sepsis, UTI, pneumonia, intracranial bleed, electrolyte abnormalities Narrative Course 12:17 PM patient was given IV fluid bolus and sepsis workup was initiated. Blood test results showed severe hyperkalemia. I ordered replacement. UA was suggestive of gross UTI. I've ordered [address] head does not show any acute changes. Chest x-ray shows small left effusion. I just spoke with the hospitalist who has admitted the patient. Critical Care Narrative Aggregate critical care time was 30 minutes. Time to perform other separately billable procedures was not included in the critical care time. My time did not include minutes spent treating any other patients simultaneously or on activities that did not directly contribute to the patient's treatment. The services I provided to this patient were to treat and/or prevent clinically significant deterioration that could result in: Severe hyperkalemia, potassium replacement I provided critical care services requiring my management, as noted below: Chart data review, documentation time, medication orders and management, vital sign assessments/reviewing monitor data, ordering and reviewing lab tests, ordering and interpreting/reviewing x-rays and diagnostic studies, care of the patient and discussion of the patient with the admitting physicians. Procedures EKG Prior to Arrival: No Diagnosis Primary Impression: New onset seizure Additional Impressions: UTI (urinary tract infection) Qualified Code: N39.0 - Urinary tract infection without hematuria, site unspecified Hypokalemia Dehydration Dementia Qualified Code: F03.90 - Dementia without behavioral disturbance, unspecified dementia type Admitting Information Admitting Physician Requests: Admit Scripts Ciprofloxacin (Cipro)500 Mg Wir060 Mg PO BID #10 TAB Ref 0 Prov:Kenney Amador MD 05/13/16 Levetiracetam (Keppra)250 Mg [id number] Mg PO Q12HR #60 TAB Ref 3 Prov:Kenney Amador MD 05/13/16 Shin Clark MD May 11, 2016 10:08
[2016-05-11] MEDS ORDERED: SODIUM CHLORID 0.9% 500 ML INJ 500 ML IV ONE (10:30)
[2016-05-11] MEDS ORDERED: SODIUM CHLORIDE 0.9% FLUSH 5 ML FLUSH IVF PRN (10:30)
[2016-05-11 10:50] LABS: AUTOMATED NEUTROPHIL # 7.6 TH/MM3 (1.8-7.7); BASOPHIL % 0.5 % (0.0-2.0); EOSINOPHIL # 0.1 TH/MM3 (0-0.4); EOSINOPHIL % 0.6 % (0.0-4.0); HEMO FLAGS DIFF FINAL; LYMPH % 9.1 % (9.0-44.0); LYMPHOCYTE # 0.8 TH/MM3 (1.0-4.8); MEAN CELL VOLUME 86.6 FL (80.0-100.0); MEAN CORPUSCULAR HEMOGLOBIN 29.8 PG (27.0-34.0); MEAN CORPUSCULAR HGB CONC 34.5 % (32.0-36.0); MONO % 6.4 % (0.0-8.0); NEUT % 83.4 % (16.0-70.0); PLATELET COUNT 239 TH/MM3 (150-450); RED BLOOD COUNT 5.19 MIL/MM3 (4.00-5.30); RED CELL DISTRIBUTION WIDTH 14.1 % (11.6-17.2); WHITE BLOOD COUNT 9.2 TH/MM3 (4.0-11.0)
[2016-05-11 11:00] LABS: BACTERIA, URINE MANY /hpf; BLOOD, URINE SMALL (NEG); CALCIUM OXALATE CRYSTALS,URINE OCC /hpf; GLUCOSE,URINE NEG (NEG); HYALINE CAST, URINE 10 /lpf (RARE); KETONE, URINE 10 mg/dL (NEG); MUCUS URINE MANY /lpf (OCC); NITRITE,URINE NEG (NEG); SQUAMOUS EPITHELIAL CELL URINE 3 /hpf (0-5); URINE COLOR YELLOW (YELLW/STRAW)
[2016-05-11 11:03] LABS: COMMENT (UR) CATH-CULTURE IND; CULTURE IF INDICATED CATH CULTURE IND; INTERNATIONAL NORMALIZED RATIO 1.2 RATIO; PROTHROMBIN TIME - PATIENT 13.4 SEC (9.8-11.6)
[2016-05-11 11:14] LABS: ANION GAP 17 MEQ/L (5-15)
[2016-05-11 11:16] LABS: ALKALINE PHOSPHATASE 124 U/L (45-117); ALT (GPT) 13 U/L (10-53); AST (GOT) 12 U/L (15-37); BICARBONATE 24.3 MEQ/L (21.0-32.0); BLOOD UREA NITROGEN 11 MG/DL (7-18); CHLORIDE 101 MEQ/L (98-107); CREATINE KINASE 46 U/L (26-192); GLOMERULAR FILTRATION RATE 90 ML/MIN (>89); SODIUM (NA) 142 MEQ/L (136-145); TOTAL BILIRUBIN ADULT 0.6 MG/DL (0.2-1.0)
[2016-05-11 11:19] LABS: POTASSIUM 2.4 MEQ/L (3.5-5.1)
[2016-05-11] MEDS ORDERED: POTASSIUM CHLOR 20 MEQ PREMIX 100 ML IV ONE (11:30)
[2016-05-11] MEDS ORDERED: SODIUM CHLOR 0.9% 1000 ML INJ 1,000 ML IV ONE (11:30)
[2016-05-11] MEDS ORDERED: POTASSIUM CHLORIDE 20 MEQ CONTROLLED RELEASE TAB PO ONE (11:30)
[2016-05-11] MEDS ORDERED: LEVOTHYROXINE SODIUM 100 MCG TAB PO ONE (11:30)
[2016-05-11] MEDS ORDERED: cefTRIAXone INJ 1,000 MG in SODIUM CHLORIDE 0.9% INJ 100 ML IV ONE (11:30)
--- NOTE | 2016-05-11 11:48 | RADRPT ---
EXAM DATE/TIME: 05/11/2016 11:00 [facility] COMPARISON: CT BRAIN W/O CONTRAST, February 24, 2016, 15:21. INDICATIONS : Found unresponsive at home, possible seizure. RADIATION DOSE: 34.43 CTDIvol (mGy) MEDICAL HISTORY : Cerebrovascular disease. Cardiovascular disease. Hypertension. Seizures, dementia SURGICAL HISTORY : Craniotomy. ENCOUNTER: Initial ACUITY: 1 day PAIN SCALE: 8/10 LOCATION: Cranial TECHNIQUE: Multiple contiguous axial images were obtained of the head. Using automated exposure control and adj ustment of the mA and/or kV according to patient size, radiation dose was kept as low as reasonably a chievable to obtain optimal diagnostic quality images. FINDINGS: The patient has had a previous craniotomy in the left parietal occipital region. There is mild central and cortical atrophy, dilation of ventricular and sulcus spaces. There is no parenchyma l hemorrhage or acute infarcts. CONCLUSION: Evidence of previous craniotomy, negative for an acute process. Quintin Tavera MD FACR on May 11, 2016 at 11:34 Board Certified Radiologist. This report was verified electronically.
--- NOTE | 2016-05-11 11:54 | RADRPT ---
EXAM DATE/TIME: 05/11/2016 11:23 [facility] COMPARISON: CHEST SINGLE AP, February 24, 2016, 12:43. INDICATIONS : Seizure. Syncope. MEDICAL HISTORY : Hypertension. Stroke. SURGICAL HISTORY : Hysterectomy. Pacemaker. ENCOUNTER: Initial ACUITY: 1 day PAIN SCORE: 0/10 LOCATION: Bilateral chest FINDINGS: A single view of the chest demonstrates cardiomegaly. Left basilar density and small left pleural eff usion. Right lung clear. Left-sided defibrillator with 3 intact leads. Osseous structures are intact . CONCLUSION: 1. Small left pleural effusion and probable atelectasis. 2. Cardiomegaly. Kenney Kelly MD on May 11, 2016 at 11:51 Board Certified Radiologist. This report was verified electronically.
[2016-05-11] MEDS ORDERED: LORazepam 2 MG/ML VIAL IV PUSH PRN (12:15)
[2016-05-11] MEDS ORDERED: SODIUM CHLORIDE 0.9% FLUSH 5 ML FLUSH FLUSH PRN (12:15)
[2016-05-11] MEDS ORDERED: RESP: ALBUTEROL 2.5 MG/IPRATROPIUM 0.5 MG NEB (PRN) NEB (12:15)
[2016-05-11] MEDS ORDERED: ACETAMINOPHEN 325 MG TAB PO PRN ×2 (12:15)
[2016-05-11] MEDS ORDERED: NALOXONE HCL 0.4 MG/ML AMP IV PRN (12:15)
[2016-05-11] MEDS ORDERED: ONDANSETRON HCL 4 MG/2 ML VIAL IVP PRN (12:15)
[2016-05-11] MEDS ORDERED: KETOROLAC TROMETHAMINE 60 MG/2 ML (IM) VIAL IM ONE (12:15)
--- NOTE | 2016-05-11 12:19 | HHI.HP ---
[facility] Gary Agudelo MD Admission Diagnosis UTI, possible new onset seizure, dehydration, hypokalemia Diagnoses: (1) Seizure (2) UTI (urinary tract infection) (3) Dementia (4) HTN (hypertension) (5) A-fib Chief Complaint: seizure activity Travel History International Travel<30 Days: No Contact w/Intl Traveler <30 Da: No Traveled to Known Affected Are: No History of Present Illness 85 y/o female with a history of HTN, dementia, chf, and cva was brought to ER by [facility] for evaluation of what was described as tonic-clonic seizure activity this morning. Patient is a poor historian and was unable to provide any history although she was alert and oriented to self place and date of . Therefore the history was obtained from ED report and chart review below: "85-year-old female came to the emergency room brought by EMS for a seizure. This is a possible new onset seizure. Patient lives with her daughter who called 911 and described a tonic-clonic seizure episode. Patient has baseline dementia. As per the daughter's description the seizure lasted for less than a minute and when EMS arrived she said she was back to her baseline. Here patient is pleasantly confused which is probably had dementia. She was covered in stool after being incontinent. She does not appear to be in any distress and doesn't seem to be complaining of any pain. Rectal temperature was 99.9. Rest of her vital signs were within normal limit as well. Patient is unable to give any meaningful history at this point. History was obtained from the EMS." However during my exam, she denies any chest pain, dysuria, shortness of breath or GI bleed. She was quite pleasant. Per nurse report, patient was able to swallow by mouth medications. Vitals were reviewed. Review of Systems ROS Limitations: Poor Historian (Dementia) Other 12 systems reviewed and are negative except for the one mentioned in the history of present illness Past Family Social History Past Medical History HTN Dementia History of atrial fibrillation CHF- last echo 10/23/14 EF 50% CVA Past Surgical History AICD Tonsillectomy Appendectomy Hysterectomy Hiatal hernia repair Pituitary tumor excision Allergies: Coded Allergies: Darvocet-N 100 (Verified Allergy, Severe, HYPOTENSION, 05/11/16) Darvon (Verified Allergy, Severe, emotional duress & hypotension, 05/11/16) Sulfa (Verified Allergy, Unknown, does no know, 05/11/16) Lortab (Verified Adverse Reaction, Severe, emotional duress & hypotension , 05/11/16) Uncoded Allergies: MOST NARCOTICS CAUSE SHOCK (Allergy, Severe, 08/30/07) PACEMAKER (Adverse Reaction, Unknown, mri precaution pacemaker, 10/21/14) mri precaution non compatible pacemaker Family History Patient denies any family history. No family history noted in EMR. Social History Patient denies any tobacco, alcohol or illicit drug use. Physical Exam Vital Signs Vital Signs Date Time Temp Pulse Resp B/P Pulse Ox O2 Delivery O2 Flow Rate FiO2 05/11/16 12:00 72 16 148/78 95 Room Air 05/11/16 09:54 96 Room Air 05/11/16 09:50 96 Room Air 05/11/16 09:44 97.7 89 19 155/84 94 Physical Exam GENERAL: This is a well-nourished, well-developed patient, in no apparent distress. SKIN: No rashes, ecchymoses or lesions. Cool and dry. HEAD: Atraumatic. Normocephalic. No temporal or scalp tenderness. EYES: Pupils equal round and reactive. Extraocular motions intact. No scleral icterus. No injection or drainage. ENT: Nose without bleeding, purulent drainage or septal hematoma. Throat without erythema, tonsillar hypertrophy or exudate. Uvula midline. Airway patent. NECK: Trachea midline. No JVD or lymphadenopathy. Supple, nontender, no meningeal signs. CARDIOVASCULAR: Regular rate and rhythm without murmurs, gallops, or rubs. RESPIRATORY: Clear to auscultation. Breath sounds equal bilaterally. No wheezes , rales, or rhonchi. GASTROINTESTINAL: Abdomen soft, non-tender, nondistended. No hepato-splenomegaly , or palpable masses. No guarding. MUSCULOSKELETAL: Extremities without clubbing, cyanosis, or edema. No joint tenderness, effusion, or edema noted. No calf tenderness. Negative Homans sign bilaterally. NEUROLOGICAL: Awake and alert. Cranial nerves II through XII intact. Motor and sensory grossly within normal limits. Five out of 5 muscle strength in all muscle groups. Normal speech. Laboratory Laboratory Tests Test 05/11/16 10:30 White Blood Count 9.2 Red Blood Count 5.19 Hemoglobin 15.5 Hematocrit 45.0 Mean Corpuscular Volume 86.6 Mean Corpuscular Hemoglobin 29.8 Mean Corpuscular Hemoglobin 34.5 Concent Red Cell Distribution Width 14.1 Platelet Count 239 Mean Platelet Volume 9.0 Neutrophils (%) (Auto) 83.4 Lymphocytes (%) (Auto) 9.1 Monocytes (%) (Auto) 6.4 Eosinophils (%) (Auto) 0.6 Basophils (%) (Auto) 0.5 Neutrophils # (Auto) 7.6 Lymphocytes # (Auto) 0.8 Monocytes # (Auto) 0.6 Eosinophils # (Auto) 0.1 Basophils # (Auto) 0.0 CBC Comment DIFF FINAL Differential Comment Prothrombin Time 13.4 Prothromb Time International 1.2 Ratio Urine Color YELLOW Urine Turbidity CLOUDY Urine pH 6.0 Urine Specific Tuckerman 1.024 Urine Protein 30 Urine Glucose (UA) NEG Urine Ketones 10 Urine Occult Blood SMALL Urine Nitrite NEG Urine Bilirubin SMALL Urine Urobilinogen 2.0 Urine Leukocyte Esterase LARGE Urine RBC 2 Urine WBC 57 Urine WBC Clumps OCC Urine Squamous Epithelial 3 Cells Urine Calcium Oxalate Crystals OCC Urine Bacteria MANY Urine Hyaline Casts 10 Urine Mucus MANY Microscopic Urinalysis Comment CATH-CULTURE IND Sodium Level 142 Potassium Level 2.4 Chloride Level 101 Carbon Dioxide Level 24.3 Anion Gap 17 Blood Urea Nitrogen 11 Creatinine 0.63 Estimat Glomerular Filtration 90 Rate Random Glucose 110 Lactic Acid Level 1.4 Calcium Level 8.7 Total Bilirubin 0.6 Aspartate Amino Transf 12 (AST/SGOT) Alanine Aminotransferase 13 (ALT/SGPT) Alkaline Phosphatase 124 Total Creatine Kinase 46 Troponin I 0.07 Total Protein 6.4 Albumin 3.0 Thyroid Stimulating Hormone 10.900 3rd Gen Date/Time Procedure Status Source Growth 05/11/16 10:35 Aerobic Blood Culture Received Blood Peripheral Pending 05/11/16 10:35 Anaerobic Blood Culture Received Blood Peripheral Pending 05/11/16 10:30 Urine Culture Received Urine Catheterized Urine Pending Result Diagram: 05/11/16 1030 05/11/16 1030 Assessment and Plan Problem List: (1) UTI (urinary tract infection) ICD Code: N39.0 Status: Acute (2) HTN (hypertension) ICD Code: I10 Status: Chronic Assessment and Plan 85-year-old female with 1-Question with seizure activity: Patient with abnormal UA pointing toward infectious process versus electrolyte abnormalities including hypokalemia, however will check portable EEG consider neurology consultation if abnormal. Ativan when necessary for seizure prophylaxis. Discontinue tramadol and hold Zoloft 2-UTI: Status post Rocephin IV 1 in ED, continue with antibiotics pending urine and blood culture 3-Hypokalemia: Replace electrolyte 4-Elevated troponin I: No prior history, ACS rule out per protocol with serial cardiac enzyme and EKG. Resume aspirin, statin, beta johanne and continue telemetry monitoring 5-Elevated TSH: Check free T4 and treat accordingly 6-History of dementia: Resume Namenda 7-Hypertension: Resume Lopressor 8-Other chronic medical conditions including atrial fibrillation: Resume outpatient medications DVT prophylaxis: Bilateral SCDs Code Status Full code Discussed Condition With Patient, ED physician Physician Certification 2 Midnight Certification Type: Admission for Inpatient Services Order for Inpatient Services The services are ordered in accordance with Medicare regulations or non- Medicare payer requirements, as applicable. In the case of services not specified as inpatient-only, they are appropriately provided as inpatient services in accordance with the 2-midnight benchmark. Estimated LOS (days): 2 days is the estimated time the patient will need to remain in the hospital, assuming treatment plan goals are met and no additional complications. Post-Hospital Plan: Not yet determined Problem Qualifiers (1) UTI (urinary tract infection): Qualified Code: N39.0 - Urinary tract infection without hematuria, site unspecified (2) Dementia: Qualified Code: F03.90 - Dementia without behavioral disturbance, unspecified dementia type Kenney Amador MD May 11, 2016 12:19
[2016-05-11] MEDS: SODIUM CHLOR 0.9% 1000 ML INJ 1,000 ML IV SCH ×2 (13:26→23:00)
--- NOTE | 2016-05-11 16:52 | MG ---
cc: DENNIS NAVARRETE M.D. Lab No: Date: 05/11/2016 Age: Sex: F Race: EEG NUMBER [id number] TECHNIQUE 17 channel EEG. DESCRIPTION The background rhythm reveals symmetrical alpha rhythm. Frequency is 8-10 Hz, amplitude is about 20-30 microvolts. There does appear to be some sharp activity localized mainly over the left parietal temporal area with phase reversal. No other asymmetries are seen. Photic results in a fairly well-developed driving response. Hyperventilation not done. IMPRESSION Abnormal study. There is sharp activity over the left hemisphere which is indicative of a possible epileptic focus in that area. MD ANILA Brown/PRISCILLA /4:40 PM /4:49 PM
--- NOTE | 2016-05-11 18:46 | PD.CONS ---
History of Present Illness Service Neurology Consult Requested By medical Reason for Consult seizure Primary Care Physician Gary Agudelo MD History of Present Illness 85-year-old female with underlying dementia came to the emergency room brought by EMS for a seizure. per chart. pt poor historian, no family available. Patient lives with her daughter who called 911 and described a tonic-clonic seizure episode. Patient has baseline dementia. As per the daughter's description the seizure lasted for less than a minute and when EMS arrived she said she was back to her baseline. Here patient is pleasantly confused which is probably had dementia. She was covered in stool after being incontinent. Patient is unable to give any meaningful history at this point. Multiple er visits and admissions over the past few months.was seen by nsx for lumbar spine dz. takes tramadol for pain. ct brain- previous left crani glucose 110. na nml. k low. wbc nml. Active Tramadol (Tramadol HCl) 50 Mg Tab 50 Mg PO Q8H PRN Namenda Xr (Memantine) 28 Mg Caper 28 Mg PO DAILY Amiodarone (Amiodarone HCl) 200 Mg Tab 400 Mg PO BID 30 Days Reported Zoloft (Sertraline HCl) 50 Mg Tab 100 Mg PO DAILY Pravastatin 20 Mg Tab 20 Mg PO DAILY Probiotic Acidophilus Sup (Lactobacillus) 1 Tab Tab 1 Tab PO Metoprolol Tartrate 50 Mg Tab 25 Mg PO BID Aspirin 81 Mg Chew 81 Mg CHEW DAILY Review of Systems ROS Limitations: Poor Historian (Dementia) Other 12 systems reviewed and are negative except for the one mentioned in the history of present illness Past Family Social History Past Medical History HTN Dementia History of atrial fibrillation CHF- last echo 10/23/14 EF 50% CVA Past Surgical History AICD Tonsillectomy Appendectomy Hysterectomy Hiatal hernia repair Pituitary tumor excision Allergies: Coded Allergies: Darvocet-N 100 (Verified Allergy, Severe, HYPOTENSION, 05/11/16) Darvon (Verified Allergy, Severe, emotional duress & hypotension, 05/11/16) Sulfa (Verified Allergy, Unknown, does no know, 05/11/16) Lortab (Verified Adverse Reaction, Severe, emotional duress & hypotension , 05/11/16) Uncoded Allergies: MOST NARCOTICS CAUSE SHOCK (Allergy, Severe, 08/30/07) PACEMAKER (Adverse Reaction, Unknown, mri precaution pacemaker, 10/21/14) mri precaution non compatible pacemaker Family History Patient denies any family history. No family history noted in EMR. Social History Patient denies any tobacco, alcohol or illicit drug use. Review of Systems All other ROS: ROS reviewed as documented in chart Past Family Social History Allergies: Coded Allergies: Darvocet-N 100 (Verified Allergy, Severe, HYPOTENSION, 05/11/16) Darvon (Verified Allergy, Severe, emotional duress & hypotension, 05/11/16) Sulfa (Verified Allergy, Unknown, does no know, 05/11/16) Lortab (Verified Adverse Reaction, Severe, emotional duress & hypotension , 05/11/16) Uncoded Allergies: MOST NARCOTICS CAUSE SHOCK (Allergy, Severe, 08/30/07) PACEMAKER (Adverse Reaction, Unknown, mri precaution pacemaker, 10/21/14) mri precaution non compatible pacemaker Active Ordered Medications Current Medications Medications (Trade) Dose Ordered Sig/Uziel Route Start Time Stop Time Status Last Admin IV Flush 2 ml 2 ml UNSCH PRN IVF 05/11/16 10:30 (NS 1000 ml Inj) 1,000 ml @ 100 mls/hr Q10H IV 05/11/16 13:00 05/11/16 13:26 (NS Flush) 2 ml UNSCH PRN FLUSH 05/11/16 12:15 (NS Flush) 2 ml BID FLUSH 05/11/16 21:00 (Tylenol) 650 mg Q4H PRN PO 05/11/16 12:15 (Zofran Inj) 4 mg Q6H PRN IVP 05/11/16 12:15 (Tylenol) 650 mg Q6H PRN PO 05/11/16 12:15 (Narcan Inj) 0.4 mg UNSCH PRN IV 05/11/16 12:15 Lorazepam 2 mg 2 mg Q6H PRN IV PUSH 05/11/16 12:15 (Rocephin Inj/NS Inj) 100 ml @ 200 mls/hr Q24H IV 05/12/16 12:00 (Cordarone) 400 mg BID PO 05/11/16 21:00 (Aspirin Chew) 81 mg DAILY CHEW 05/12/16 09:00 (Lopressor) 25 mg BID PO 05/11/16 21:00 (Pravachol) 20 mg DAILY PO 05/12/16 09:00 (Namenda) 10 mg BID PO 05/11/16 21:00 Exam I&O / VS Vital Signs Date Time Temp Pulse Resp B/P Pulse Ox O2 Delivery O2 Flow Rate FiO2 05/11/16 17:24 96.6 65 20 127/70 95 05/11/16 15:18 68 20 115/73 96 Room Air 05/11/16 12:00 72 16 148/78 95 Room Air 05/11/16 09:54 96 Room Air 05/11/16 09:50 96 Room Air 05/11/16 09:44 97.7 89 19 155/84 94 General: No acute distress Eye: EOMI Exam Comments awake, alert, ox 2, not to date, follows some simple request,. eomi, vff not reliable, inattentive, able to raise all 4 ext upper > le; rt le moderate edema> left leg, msr depressed, no clonus, planter flexor response, mild increased tone in ue Review/Management Diagnosis/Plan: (1) Seizure Plan: tramadol could have lowered sz threshold has higher risk 2/2 left mca encephalomalacia eeg nml recs d/c tramadol tx thyroid keppra 250mg bid for now; may d/c in future d/c planning in am if stable fall precautions/no driving (2) Dementia Plan: on namenda (3) A-fib Plan: OAC but due to falls not a good candidate (4) AICD discharge Problem Qualifiers (1) Dementia: Qualified Code: F03.90 - Dementia without behavioral disturbance, unspecified dementia type (2) A-fib: Qualified Code: I48.91 - Atrial fibrillation, unspecified type James Gaona MD May 11, 2016 18:46
[2016-05-11] MEDS: SODIUM CHLORIDE 0.9% FLUSH 5 ML FLUSH FLUSH SCH (20:57)
[2016-05-11] MEDS: AMIODARONE 200 MG TAB PO SCH (21:31)
[2016-05-11] MEDS: MEMANTINE HCL 10 MG TAB PO SCH (21:31)
[2016-05-11] MEDS: METOPROLOL TARTRATE 50 MG TAB PO SCH (21:31)
[2016-05-11] MEDS: levETIRAcetam 250 MG TAB PO SCH (21:32)
[2016-05-12] VITALS: BP 145/67; PULSE 65; RESP 20; TEMP 96.6; O2SAT 95
[2016-05-12 00:10] LABS: FREE T4 1.55 NG/DL (0.76-1.46)
[2016-05-12 04:00] VITALS: BP 148/69; PULSE 60; RESP 20; TEMP 96.3; O2SAT 96
[2016-05-12 07:52] VITALS: BP 140/71; PULSE 60; RESP 20; TEMP 95.4; O2SAT 99
[2016-05-12 08:28] LABS: AUTOMATED NEUTROPHIL # 4.1 TH/MM3 (1.8-7.7); BASOPHIL % 0.6 % (0.0-2.0); EOSINOPHIL # 0.1 TH/MM3 (0-0.4); HEMATOCRIT 37.6 % (35.0-46.0); HEMO FLAGS DIFF FINAL; LYMPH % 16.5 % (9.0-44.0); LYMPHOCYTE # 0.9 TH/MM3 (1.0-4.8); MEAN CELL VOLUME 87.7 FL (80.0-100.0); MEAN CORPUSCULAR HEMOGLOBIN 29.6 PG (27.0-34.0); MEAN CORPUSCULAR HGB CONC 33.8 % (32.0-36.0); MONO % 8.4 % (0.0-8.0); NEUT % 72.5 % (16.0-70.0); PLATELET COUNT 177 TH/MM3 (150-450); RED BLOOD COUNT 4.28 MIL/MM3 (4.00-5.30); RED CELL DISTRIBUTION WIDTH 14.2 % (11.6-17.2); WHITE BLOOD COUNT 5.7 TH/MM3 (4.0-11.0)
--- NOTE | 2016-05-12 08:47 | HHI.PR ---
Review/Management Diagnosis/Plan: (1) Seizure Plan: tramadol could have lowered sz threshold has higher risk 2/2 left mca encephalomalacia eeg nml recs exam stable d/c tramadol tx thyroid keppra 250mg bid for now; may d/c in near future d/c planning in today from neuro fall precautions/no driving (2) Dementia Plan: on namenda (3) A-fib Plan: OAC but due to falls not a good candidate (4) AICD discharge Subjective Subjective Comments No acute events reported No headache No chest pain No dyspnea Active Medications Current Medications Medications (Trade) Dose Ordered Sig/Uziel Route Start Time Stop Time Status Last Admin IV Flush 2 ml 2 ml UNSCH PRN IVF 05/11/16 10:30 (NS 1000 ml Inj) 1,000 ml @ 100 mls/hr Q10H IV 05/11/16 13:00 05/11/16 13:26 (NS Flush) 2 ml UNSCH PRN FLUSH 05/11/16 12:15 (NS Flush) 2 ml BID FLUSH 05/11/16 21:00 (Tylenol) 650 mg Q4H PRN PO 05/11/16 12:15 (Zofran Inj) 4 mg Q6H PRN IVP 05/11/16 12:15 (Tylenol) 650 mg Q6H PRN PO 05/11/16 12:15 (Narcan Inj) 0.4 mg UNSCH PRN IV 05/11/16 12:15 Lorazepam 2 mg 2 mg Q6H PRN IV PUSH 05/11/16 12:15 (Rocephin Inj/NS Inj) 100 ml @ 200 mls/hr Q24H IV 05/12/16 12:00 (Cordarone) 400 mg BID PO 05/11/16 21:00 05/11/16 21:31 (Aspirin Chew) 81 mg DAILY CHEW 05/12/16 09:00 (Lopressor) 25 mg BID PO 05/11/16 21:00 05/11/16 21:31 (Pravachol) 20 mg DAILY PO 05/12/16 09:00 (Namenda) 10 mg BID PO 05/11/16 21:00 05/11/16 21:31 (Keppra) 250 mg Q12HR PO 05/11/16 21:00 05/11/16 21:32 Allergies Allergies Coded Allergies Darvocet-N 100 (Verified Allergy, Severe, HYPOTENSION, 05/11/16) Darvon (Verified Allergy, Severe, emotional duress & hypotension, 05/11/16) Sulfa (Verified Allergy, Unknown, does no know, 05/11/16) Lortab (Verified Adverse Reaction, Severe, emotional duress & hypotension, 05/11) Uncoded Allergies MOST NARCOTICS CAUSE SHOCK ( Allergy, Severe, 08/30/07) PACEMAKER ( Adverse Reaction, Unknown, mri precaution pacemaker, 10/21/14) Review of Systems All other ROS: ROS reviewed as documented in chart Exam I&O / VS 05/11/16 05/11/16 05/12/16 15:00 23:00 07:00 Intake Total 240 ml 60 ml Balance 240 ml 60 ml Intake Oral 240 ml 60 ml # Voids 1 2 # Bowel Movements 1 0 1 Vital Signs Date Time Temp Pulse Resp B/P Pulse Ox O2 Delivery O2 Flow Rate FiO2 05/12/16 04:00 96.3 60 20 148/69 96 05/12/16 00:00 96.6 65 20 145/67 95 05/11/16 20:00 96.3 71 20 170/77 94 05/11/16 17:24 96.6 65 20 127/70 95 05/11/16 15:18 68 20 115/73 96 Room Air 05/11/16 12:00 72 16 148/78 95 Room Air 05/11/16 09:54 96 Room Air 05/11/16 09:50 96 Room Air 05/11/16 09:44 97.7 89 19 155/84 94 General: No acute distress Eye: EOMI Exam Comments awake, alert, ox 2, not to date, follows some simple request,. eomi, vff not reliable, inattentive, able to raise all 4 ext upper > le; rt le moderate edema> left leg, msr depressed, no clonus, planter flexor response, mild increased tone in ue Objective Micro and Labs Laboratory Tests Test 05/11/16 05/11/16 05/11/16 05/12/16 10:30 16:30 22:53 07:25 White Blood Count 9.2 5.7 Red Blood Count 5.19 4.28 Hemoglobin 15.5 12.7 Hematocrit 45.0 37.6 Mean Corpuscular Volume 86.6 87.7 Mean Corpuscular Hemoglobin 29.8 29.6 Mean Corpuscular Hemoglobin 34.5 33.8 Concent Red Cell Distribution Width 14.1 14.2 Platelet Count 239 177 Mean Platelet Volume 9.0 8.7 Neutrophils (%) (Auto) 83.4 72.5 Lymphocytes (%) (Auto) 9.1 16.5 Monocytes (%) (Auto) 6.4 8.4 Eosinophils (%) (Auto) 0.6 2.0 Basophils (%) (Auto) 0.5 0.6 Neutrophils # (Auto) 7.6 4.1 Lymphocytes # (Auto) 0.8 0.9 Monocytes # (Auto) 0.6 0.5 Eosinophils # (Auto) 0.1 0.1 Basophils # (Auto) 0.0 0.0 CBC Comment DIFF FINAL DIFF FINAL Differential Comment Prothrombin Time 13.4 Prothromb Time International 1.2 Ratio Urine Color YELLOW Urine Turbidity CLOUDY Urine pH 6.0 Urine Specific [place] 1.024 Urine Protein 30 Urine Glucose (UA) NEG Urine Ketones 10 Urine Occult Blood SMALL Urine Nitrite NEG Urine Bilirubin SMALL Urine Urobilinogen 2.0 Urine Leukocyte Esterase LARGE Urine RBC 2 Urine WBC 57 Urine WBC Clumps OCC Urine Squamous Epithelial 3 Cells Urine Calcium Oxalate Crystals OCC Urine Bacteria MANY Urine Hyaline Casts 10 Urine Mucus MANY Microscopic Urinalysis Comment CATH-CULTURE IND Sodium Level 142 Potassium Level 2.4 Chloride Level 101 Carbon Dioxide Level 24.3 Anion Gap 17 Blood Urea Nitrogen 11 Creatinine 0.63 Estimat Glomerular Filtration 90 Rate Random Glucose 110 Lactic Acid Level 1.4 Calcium Level 8.7 Total Bilirubin 0.6 Aspartate Amino Transf 12 (AST/SGOT) Alanine Aminotransferase 13 (ALT/SGPT) Alkaline Phosphatase 124 Total Creatine Kinase 46 50 51 Troponin I 0.07 0.08 0.07 Total Protein 6.4 Albumin 3.0 Thyroid Stimulating Hormone 10.900 3rd Gen Free Thyroxine 1.55 Date/Time Procedure Status Source Growth 05/11/16 10:35 Aerobic Blood Culture Received Blood Peripheral Pending 05/11/16 10:35 Anaerobic Blood Culture Received Blood Peripheral Pending 05/11/16 10:30 Urine Culture Received Urine Catheterized Urine Pending Problem Qualifiers (1) Dementia: Qualified Code: F03.90 - Dementia without behavioral disturbance, unspecified dementia type (2) A-fib: Qualified Code: I48.91 - Atrial fibrillation, unspecified type James Gaona MD May 12, 2016 08:47
[2016-05-12 08:54] LABS: ALKALINE PHOSPHATASE 87 U/L (45-117); ALT (GPT) 11 U/L (10-53); ANION GAP 9 MEQ/L (5-15); AST (GOT) 11 U/L (15-37); BLOOD UREA NITROGEN 11 MG/DL (7-18); CHLORIDE 111 MEQ/L (98-107); GLOMERULAR FILTRATION RATE 112 ML/MIN (>89); SODIUM (NA) 147 MEQ/L (136-145); TOTAL BILIRUBIN ADULT 0.3 MG/DL (0.2-1.0)
[2016-05-12 08:58] LABS: POTASSIUM 2.5 MEQ/L (3.5-5.1)
[2016-05-12] MEDS: SODIUM CHLORIDE 0.9% FLUSH 5 ML FLUSH FLUSH SCH ×2 (09:00→22:47)
[2016-05-12] MEDS: METOPROLOL TARTRATE 50 MG TAB PO SCH ×2 (09:46→22:47)
[2016-05-12] MEDS: levETIRAcetam 250 MG TAB PO SCH ×2 (09:46→22:46)
[2016-05-12] MEDS: MEMANTINE HCL 10 MG TAB PO SCH ×2 (09:46→22:46)
[2016-05-12] MEDS: ASPIRIN 81 MG CHEW TAB CHEW SCH (09:46)
[2016-05-12] MEDS: AMIODARONE 200 MG TAB PO SCH ×2 (09:46→22:47)
[2016-05-12] MEDS: PRAVASTATIN SOD 20 MG TAB PO SCH (09:46)
--- NOTE | 2016-05-12 10:38 | HHI.PR ---
Subjective Remarks Follow-up seizure disorder/UTI 05/12/16-patient seen and examined, stable and denies any headache. No report of seizure activity overnight. Currently afebrile Objective Vitals Vital Signs Date Time Temp Pulse Resp B/P Pulse Ox O2 Delivery O2 Flow Rate FiO2 05/12/16 07:52 95.4 60 20 140/71 99 05/12/16 04:00 96.3 60 20 148/69 96 05/12/16 00:00 96.6 65 20 145/67 95 05/11/16 20:00 96.3 71 20 170/77 94 05/11/16 17:24 96.6 65 20 127/70 95 05/11/16 15:18 68 20 115/73 96 Room Air 05/11/16 12:00 72 16 148/78 95 Room Air I/O 05/11/16 05/11/16 05/11/16 05/12/16 05/12/16 05/12/16 07:00 15:00 23:00 07:00 15:00 23:00 Intake Total 240 ml 60 ml Balance 240 ml 60 ml Intake Oral 240 ml 60 ml # Voids 1 2 # Bowel Movements 1 0 1 Result Diagram: 05/12/16 0725 05/12/16 0725 Imaging Last Impressions Head CT 05/11/16 1026 Signed Impressions: Service Date/Time: Wednesday, May 11, 2016 11:00 - CONCLUSION: Evidence of previous craniotomy, negative for an acute process. Quintin Tavera MD FACR Chest X-Ray 05/11/16 0000 Signed Impressions: Service Date/Time: Wednesday, May 11, 2016 11:23 - CONCLUSION: 1. Small left pleural effusion and probable atelectasis. 2. Cardiomegaly. Kenney Kelly MD Objective Remarks GENERAL: NAD SKIN: Warm and dry. HEAD: Normocephalic. EYES: No scleral icterus. No injection or drainage. NECK: Supple, trachea midline. No JVD or lymphadenopathy. CARDIOVASCULAR: Regular rate and rhythm without murmurs, gallops, or rubs. RESPIRATORY: Breath sounds equal bilaterally. No accessory muscle use. GASTROINTESTINAL: Abdomen soft, non-tender, nondistended. MUSCULOSKELETAL: No cyanosis, or edema. BACK: Nontender without obvious deformity. No CVA tenderness. A/P Problem List: (1) Seizure ICD Code: R56.9 Status: Acute (2) UTI (urinary tract infection) ICD Code: N39.0 Status: Acute (3) Dementia ICD Code: F03.90 Status: Chronic (4) HTN (hypertension) ICD Code: I10 Status: Chronic (5) A-fib ICD Code: I48.91 Status: Chronic Assessment and Plan 85-year-old female with 1-seizure disorder: Abnormal EEG; currently on Keppra 2250 mg by mouth twice a day per neurology. Continue seizure precautions. Ativan when necessary for seizure prophylaxis. Discontinue tramadol and hold Zoloft 2-UTI: Status post Rocephin IV 1 in ED, continue with antibiotics pending urine and blood culture 3-Hypokalemia: Give potassium 60 mEq 1 now and monitor 4-Elevated troponin I: ACS ruled out per protocol with serial cardiac enzyme and EKG. continue aspirin, statin, beta johanne and continue telemetry monitoring 5-Hypothyroidism: Start Synthroid 125 g daily much better 2016 6-History of dementia: Continue Namenda 7-Hypertension: on Lopressor 8-Other chronic medical conditions: Continue outpatient medications 9-Atrial fibrillation: Not on oral anticoagulation secondary to increased risk of fall, continue beta johanne and aspirin. DVT prophylaxis: Bilateral SCDs Problem Qualifiers (1) UTI (urinary tract infection): Qualified Code: N39.0 - Urinary tract infection without hematuria, site unspecified (2) Dementia: Qualified Code: F03.90 - Dementia without behavioral disturbance, unspecified dementia type (3) A-fib: Qualified Code: I48.91 - Atrial fibrillation, unspecified type Kenney Amador MD May 12, 2016 10:38
[2016-05-12] MEDS ORDERED: POTASSIUM CHLORIDE 10 MEQ CONTROLLED RELEASE TAB PO ONE (11:15)
[2016-05-12 11:35] VITALS: BP 150/80; PULSE 64; RESP 20; TEMP 96; O2SAT 96
[2016-05-12] MEDS: cefTRIAXone INJ 1,000 MG in SODIUM CHLORIDE 0.9% INJ 100 ML IV SCH (13:00)
[2016-05-12 15:40] VITALS: BP 152/84; PULSE 65; RESP 20; TEMP 96.5; O2SAT 95
[2016-05-12] MEDS: SODIUM CHLOR 0.9% 1000 ML INJ 1,000 ML IV SCH (22:48)
--- NOTE | 2016-05-12 23:47 | EKG ---
Date Performed: 05/11/2016 Time Performed: 22:29:16 PTAGE: 85 years EKG: Sinus rhythm MARKED LEFT AXIS DEVIATION POSSIBLE ANTERIOR MYOCARDIAL INFARCTION , OF INDETERMINATE AGE ABNORMAL E CG PREVIOUS TRACING : 05/11/2016 16.34 Compared to prior tracing no significant change DOCTOR: Alberto Deras Interpretating Date/Time 05/12/2016 23:46:18
--- NOTE | 2016-05-12 23:57 | EKG ---
Date Performed: 05/11/2016 Time Performed: 16:34:16 PTAGE: 85 years EKG: Sinus rhythm MARKED LEFT AXIS DEVIATION LEFT VENTRICULAR HYPERTROPHY AND ST-T CHANGE ABNORMAL ECG PREVIOUS TRACING : 05/11/2016 10.53 Compared to prior tracing no significant change DOCTOR: Alberto Deras Interpretating Date/Time 05/12/2016 23:56:02
[2016-05-13] VITALS: BP 157/74; PULSE 65; RESP 20; TEMP 97.9; O2SAT 93
--- NOTE | 2016-05-13 00:05 | EKG ---
Date Performed: 05/11/2016 Time Performed: 10:53:26 PTAGE: 85 years EKG: Sinus rhythm MARKED LEFT AXIS DEVIATION LEFT VENTRICULAR HYPERTROPHY AND ST-T CHANGE POSSIBLE SEPTAL MYOCARDIAL I NFARCTION ABNORMAL ECG PREVIOUS TRACING : 04/14/2016 14.30 Compared to prior tracing no significant change DOCTOR: Alberto Deras Interpretating Date/Time 05/13/2016 00:04:51
[2016-05-13 00:30] VITALS: BP 150/75; PULSE 68; RESP 19; TEMP 98.1; O2SAT 94
[2016-05-13 06:00] VITALS: BP 145/76; PULSE 69; RESP 19; TEMP 98.8; O2SAT 94
[2016-05-13] MEDS ORDERED: LEVOTHYROXINE SODIUM 125 MCG TAB PO SCH (06:00)
[2016-05-13] MEDS: SODIUM CHLOR 0.9% 1000 ML INJ 1,000 ML IV SCH (06:31)
[2016-05-13 08:00] VITALS: BP 148/76; PULSE 59; RESP 18; TEMP 96.3; O2SAT 84
--- NOTE | 2016-05-13 08:00 | HHI.PR ---
Review/Management Diagnosis/Plan: (1) Seizure Plan: tramadol could have lowered sz threshold has higher risk 2/2 left mca encephalomalacia eeg-left side sharp activity; region of previous lesion recs neuro stable continue keppra 250mg bid d/c planning in today from neuro sign off; can f/u outpatient 2-3 weeks fall precautions/no driving (2) Dementia Plan: on namenda (3) A-fib Plan: OAC but due to falls not a good candidate (4) AICD discharge Subjective Subjective Comments No acute events reported No headache No chest pain No dyspnea Active Medications Current Medications Medications (Trade) Dose Ordered Sig/Uziel Route Start Time Stop Time Status Last Admin IV Flush 2 ml 2 ml UNSCH PRN IVF 05/11/16 10:30 (NS 1000 ml Inj) 1,000 ml @ 100 mls/hr Q10H IV 05/11/16 13:00 05/13/16 06:31 (NS Flush) 2 ml UNSCH PRN FLUSH 05/11/16 12:15 (NS Flush) 2 ml BID FLUSH 05/11/16 21:00 05/12/16 22:47 (Tylenol) 650 mg Q4H PRN PO 05/11/16 12:15 (Zofran Inj) 4 mg Q6H PRN IVP 05/11/16 12:15 (Tylenol) 650 mg Q6H PRN PO 05/11/16 12:15 (Narcan Inj) 0.4 mg UNSCH PRN IV 05/11/16 12:15 Lorazepam 2 mg 2 mg Q6H PRN IV PUSH 05/11/16 12:15 (Rocephin Inj/NS Inj) 100 ml @ 200 mls/hr Q24H IV 05/12/16 12:00 05/12/16 13:00 (Cordarone) 400 mg BID PO 05/11/16 21:00 05/12/16 22:47 (Aspirin Chew) 81 mg DAILY CHEW 05/12/16 09:00 05/12/16 09:46 (Lopressor) 25 mg BID PO 05/11/16 21:00 05/12/16 22:47 (Pravachol) 20 mg DAILY PO 05/12/16 09:00 05/12/16 09:46 (Namenda) 10 mg BID PO 05/11/16 21:00 05/12/16 22:46 (Keppra) 250 mg Q12HR PO 05/11/16 21:00 05/12/16 22:46 (Synthroid) 125 mcg DAILY@0600 PO 05/13/16 06:00 05/13/16 06:31 Allergies Allergies Coded Allergies Darvocet-N 100 (Verified Allergy, Severe, HYPOTENSION, 05/11/16) Darvon (Verified Allergy, Severe, emotional duress & hypotension, 05/11/16) Sulfa (Verified Allergy, Unknown, does no know, 05/11/16) Lortab (Verified Adverse Reaction, Severe, emotional duress & hypotension, 05/11) Uncoded Allergies MOST NARCOTICS CAUSE SHOCK ( Allergy, Severe, 08/30/07) PACEMAKER ( Adverse Reaction, Unknown, mri precaution pacemaker, 10/21/14) Review of Systems All other ROS: ROS reviewed as documented in chart Exam I&O / VS 05/12/16 05/12/16 05/13/16 15:00 23:00 07:00 Intake Total 240 ml 965 ml 910 ml Balance 240 ml 965 ml 910 ml Intake Oral 240 ml 620 ml 150 ml IV Total 345 ml 760 ml # Voids 4 1 2 # Bowel Movements 0 0 0 Vital Signs Date Time Temp Pulse Resp B/P Pulse Ox O2 Delivery O2 Flow Rate FiO2 05/13/16 06:00 98.8 69 19 145/76 94 05/13/16 00:30 98.1 68 19 150/75 94 05/13/16 00:00 97.9 65 20 157/74 93 05/12/16 15:40 96.5 65 20 152/84 95 05/12/16 11:35 96.0 64 20 150/80 96 General: No acute distress Eye: EOMI Exam Comments awake, alert, ox 2, not to date, follows some simple request,. eomi, vff not reliable, inattentive, able to raise all 4 ext upper > le; rt le moderate edema> left leg, msr depressed, no clonus, planter flexor response, mild increased tone in ue Objective Micro and Labs Date/Time Procedure Status Source Growth 05/11/16 10:35 Aerobic Blood Culture - Preliminary Resulted Blood Peripheral NO GROWTH IN 1 DAY 05/11/16 10:35 Anaerobic Blood Culture - Preliminary Resulted Blood Peripheral NO GROWTH IN 1 DAY 05/11/16 10:30 Urine Culture - Preliminary Resulted Urine Catheterized Urine Gram Negative Ruben Problem Qualifiers (1) Dementia: Qualified Code: F03.90 - Dementia without behavioral disturbance, unspecified dementia type (2) A-fib: Qualified Code: I48.91 - Atrial fibrillation, unspecified type James Gaona MD May 13, 2016 08:00
[2016-05-13] MEDS: SODIUM CHLORIDE 0.9% FLUSH 5 ML FLUSH FLUSH SCH (09:00)
--- NOTE | 2016-05-13 09:07 | HHI.PR ---
Subjective Remarks Follow-up seizure disorder/UTI 05/12/16-patient seen and examined, stable and denies any headache. No report of seizure activity overnight. Currently afebrile 05/13/16-patient seen and examined, she was complaining of nausea and had one episode of dry heaving and otherwise no acute event overnight. Seizure activity since admission. Patient states, she would like to be discharged home and is refusing rehabilitation. Objective Vitals Vital Signs Date Time Temp Pulse Resp B/P Pulse Ox O2 Delivery O2 Flow Rate FiO2 05/13/16 08:00 96.3 59 18 148/76 84 05/13/16 06:00 98.8 69 19 145/76 94 05/13/16 00:30 98.1 68 19 150/75 94 05/13/16 00:00 97.9 65 20 157/74 93 05/12/16 15:40 96.5 65 20 152/84 95 05/12/16 11:35 96.0 64 20 150/80 96 I/O 05/12/16 05/12/16 05/12/16 05/13/16 05/13/16 05/13/16 07:00 15:00 23:00 07:00 15:00 23:00 Intake Total 60 ml 240 ml 965 ml 910 ml Balance 60 ml 240 ml 965 ml 910 ml Intake Oral 60 ml 240 ml 620 ml 150 ml IV Total 345 ml 760 ml # Voids 2 4 1 2 # Bowel Movements 1 0 0 0 Result Diagram: 05/12/16 0725 05/12/16 0725 Imaging Last Impressions Head CT 05/11/16 1026 Signed Impressions: Service Date/Time: Wednesday, May 11, 2016 11:00 - CONCLUSION: Evidence of previous craniotomy, negative for an acute process. Quintin Tavera MD FACR Chest X-Ray 05/11/16 0000 Signed Impressions: Service Date/Time: Wednesday, May 11, 2016 11:23 - CONCLUSION: 1. Small left pleural effusion and probable atelectasis. 2. Cardiomegaly. Kenney Kelly MD Objective Remarks GENERAL: NAD SKIN: Warm and dry. HEAD: Normocephalic. EYES: No scleral icterus. No injection or drainage. NECK: Supple, trachea midline. No JVD or lymphadenopathy. CARDIOVASCULAR: Regular rate and rhythm without murmurs, gallops, or rubs. RESPIRATORY: Breath sounds equal bilaterally. No accessory muscle use. GASTROINTESTINAL: Abdomen soft, non-tender, nondistended. MUSCULOSKELETAL: No cyanosis, or edema. BACK: Nontender without obvious deformity. No CVA tenderness. Procedures None A/P Problem List: (1) Seizure ICD Code: R56.9 Status: Acute (2) UTI (urinary tract infection) ICD Code: N39.0 Status: Acute (3) Dementia ICD Code: F03.90 Status: Chronic (4) HTN (hypertension) ICD Code: I10 Status: Chronic (5) A-fib ICD Code: I48.91 Status: Chronic Assessment and Plan 85-year-old female with 1-seizure disorder: Abnormal EEG; currently on Keppra 2250 mg by mouth twice a day per neurology. Continue seizure precautions. Ativan when necessary for seizure prophylaxis. Discontinued tramadol and hold Zoloft 2-UTI: Status post Rocephin IV 1 in ED, continue with antibiotics pending urine and blood culture 3-Hypokalemia: Replace Dee right and monitor 4-Elevated troponin I: ACS ruled out per protocol with serial cardiac enzyme and EKG. continue aspirin, statin, beta johanne and continue telemetry monitoring 5-Hypothyroidism: on Synthroid 125 g daily 6-History of dementia: Continue Namenda 7-Hypertension: on Lopressor 8-Other chronic medical conditions: Continue outpatient medications 9-Atrial fibrillation: Not on oral anticoagulation secondary to increased risk of fall, continue beta johanne and aspirin. DVT prophylaxis: Bilateral SCDs Hospice consultation pending Problem Qualifiers (1) UTI (urinary tract infection): Qualified Code: N39.0 - Urinary tract infection without hematuria, site unspecified (2) Dementia: Qualified Code: F03.90 - Dementia without behavioral disturbance, unspecified dementia type (3) A-fib: Qualified Code: I48.91 - Atrial fibrillation, unspecified type Kenney Amador MD May 13, 2016 09:07
[2016-05-13] MEDS ORDERED: POTASSIUM CHLORIDE 25 MEQ EFFERVESCENT TAB PO ONE (09:15)
[2016-05-13] MEDS: ASPIRIN 81 MG CHEW TAB CHEW SCH (10:23)
[2016-05-13] MEDS: levETIRAcetam 250 MG TAB PO SCH (10:23)
[2016-05-13] MEDS: PRAVASTATIN SOD 20 MG TAB PO SCH (10:23)
[2016-05-13] MEDS: METOPROLOL TARTRATE 50 MG TAB PO SCH (10:24)
[2016-05-13] MEDS: AMIODARONE 200 MG TAB PO SCH (10:24)
[2016-05-13] MEDS: MEMANTINE HCL 10 MG TAB PO SCH (10:24)
[2016-05-13] MEDS: cefTRIAXone INJ 1,000 MG in SODIUM CHLORIDE 0.9% INJ 100 ML IV SCH (12:00)
[2016-05-13 12:32] VITALS: BP 166/77; PULSE 63; RESP 18; TEMP 95.8; O2SAT 93
--- NOTE | 2016-05-13 12:53 | HHI.DS ---
Discharge Summary Admission Date May 11, 2016 at 12:13 Discharge Date: May 13, 2016 Admitting Diagnosis UTI, possible new onset seizure, dehydration, hypokalemia (1) Seizure ICD Code: R56.9 (2) UTI (urinary tract infection) ICD Code: N39.0 (3) Dementia ICD Code: F03.90 (4) HTN (hypertension) ICD Code: I10 (5) A-fib ICD Code: I48.91 Procedures None Brief History - From Admission 85 y/o female with a history of HTN, dementia, chf, and cva was brought to ER by [facility] for evaluation of what was described as tonic-clonic seizure activity this morning. Patient is a poor historian and was unable to provide any history although she was alert and oriented to self place and date of . Therefore the history was obtained from ED report and chart review below: "85-year-old female came to the emergency room brought by EMS for a seizure. This is a possible new onset seizure. Patient lives with her daughter who called 911 and described a tonic-clonic seizure episode. Patient has baseline dementia. As per the daughter's description the seizure lasted for less than a minute and when EMS arrived she said she was back to her baseline. Here patient is pleasantly confused which is probably had dementia. She was covered in stool after being incontinent. She does not appear to be in any distress and doesn't seem to be complaining of any pain. Rectal temperature was 99.9. Rest of her vital signs were within normal limit as well. Patient is unable to give any meaningful history at this point. History was obtained from the EMS." However during my exam, she denies any chest pain, dysuria, shortness of breath or GI bleed. She was quite pleasant. Per nurse report, patient was able to swallow by mouth medications. Vitals were reviewed. CBC/BMP: 05/12/16 0725 05/12/16 0725 Significant Findings Laboratory Tests Test 05/11/16 05/11/16 05/11/16 05/12/16 10:30 16:30 22:53 07:25 Prothrombin Time 13.4 SEC (9.8-11.6) Potassium Level 2.4 MEQ/L 2.5 MEQ/L (3.5-5.1) (3.5-5.1) Anion Gap 17 MEQ/L (5-15) Random Glucose 110 MG/DL (74-106) Aspartate Amino Transf 12 U/L (15-37) 11 U/L (15-37) (AST/SGOT) Alkaline Phosphatase 124 U/L (45-117) Troponin I 0.07 NG/ML 0.08 NG/ML 0.07 NG/ML (0.02-0.05) (0.02-0.05) (0.02-0.05) Albumin 3.0 GM/DL 2.4 GM/DL (3.4-5.0) (3.4-5.0) Thyroid Stimulating Hormone 10.900 uIU/ML 3rd Gen (0.358-3.740) Hemoglobin 15.5 GM/DL (11.6-15.3) Neutrophils (%) (Auto) 83.4 % 72.5 % (16.0-70.0) (16.0-70.0) Lymphocytes # (Auto) 0.8 TH/MM3 0.9 TH/MM3 (1.0-4.8) (1.0-4.8) Urine Turbidity CLOUDY (CLEAR) Urine Protein 30 mg/dL (NEG-TRACE) Urine Ketones 10 mg/dL (NEG) Urine Occult Blood SMALL (NEG) Urine Bilirubin SMALL (NEG) Urine Leukocyte Esterase LARGE (NEG) Urine WBC 57 /hpf (0-5) Urine WBC Clumps OCC (NONE) Urine Calcium Oxalate Crystals OCC /hpf (NONE) Urine Bacteria MANY /hpf (NONE) Urine Mucus MANY /lpf (OCC) Free Thyroxine 1.55 NG/DL (0.76-1.46) Monocytes (%) (Auto) 8.4 % (0.0-8.0) Sodium Level 147 MEQ/L (136-145) Chloride Level 111 MEQ/L (98-107) Calcium Level 8.0 MG/DL (8.5-10.1) Total Protein 5.1 GM/DL (6.4-8.2) Imaging Last Impressions Head CT 05/11/16 1026 Signed Impressions: Service Date/Time: Wednesday, May 11, 2016 11:00 - CONCLUSION: Evidence of previous craniotomy, negative for an acute process. Quintin Tavera MD FACR Chest X-Ray 05/11/16 0000 Signed Impressions: Service Date/Time: Wednesday, May 11, 2016 11:23 - CONCLUSION: 1. Small left pleural effusion and probable atelectasis. 2. Cardiomegaly. Kenney Kelly MD PE at Discharge GENERAL: NAD SKIN: Warm and dry. HEAD: Normocephalic. EYES: No scleral icterus. No injection or drainage. NECK: Supple, trachea midline. No JVD or lymphadenopathy. CARDIOVASCULAR: Regular rate and rhythm without murmurs, gallops, or rubs. RESPIRATORY: Breath sounds equal bilaterally. No accessory muscle use. GASTROINTESTINAL: Abdomen soft, non-tender, nondistended. MUSCULOSKELETAL: No cyanosis, or edema. BACK: Nontender without obvious deformity. No CVA tenderness. Hospital Course She was diagnosed with new onset seizure disorder as she had abnormal EEG for which neurology was consulted and patient was started on Keppra 250 mg twice a day. She was also treated for UTI with IV antibiotics but was subsequently switched to by mouth prior to discharge. Patient was diagnosed with hypothyroidism for which she was started on Synthroid 125 g daily. All electrolyte abnormalities including hypokalemia will replace accordingly. Other chronic medical conditions except tramadol well resumes. DVT and GI prophylaxis were provided. PT was consulted. Pt Condition on Discharge: Stable Discharge Disposition: Disch w/ Home Health Serv Discharge Time: > 30 minutes Discharge Instructions Activities to Avoid: Driving Follow up Referrals: Neurology - 2 Weeks PCP Follow-up - 1 Week New Medications: Ciprofloxacin (Cipro) 500 Mg Tab 500 MG PO BID Infection #10 Ref 0 TAB Levetiracetam (Keppra) 250 Mg Tab 250 MG PO Q12HR Control Seizures #60 Ref 3 TAB Continued Medications: Amiodarone (Amiodarone) 200 Mg Tab 400 MG PO BID control heart rate Days 30 TAB Aspirin (Aspirin) 81 Mg Chew 81 MG CHEW DAILY Ref 0 TAB Lactobacillus (Probiotic Acidophilus Sup) 1 Tab Tab 1 TAB PO Memantine Er (Namenda Xr) 28 Mg Caper 28 MG PO DAILY Alzheimer Disease #30 Ref 0 CAP Metoprolol Tartrate (Metoprolol Tartrate) 50 Mg Tab 25 MG PO BID #30 Ref 0 TAB Pravastatin (Pravastatin) 20 Mg Tab 20 MG PO DAILY Cholesterol Management #30 Ref 0 TAB Sertraline (Zoloft) 50 Mg Tab 100 MG PO DAILY #30 Ref 0 TAB Discontinued Medications: Tramadol (Tramadol) 50 Mg Tab 50 MG PO Q8H PRN PAIN #30 Ref 0 TAB Kenney Amador MD May 13, 2016 12:53 Discontinued Medications: Tramadol (Tramadol) 50 Mg Tab 50 MG PO Q8H PRN PAIN #30 Ref 0 TAB Kenney Amador MD May 13, 2016 12:53
--- NOTE | 2016-05-13 12:53 | HHI.FF ---
Face to Face Verification Diagnosis: (1) UTI (urinary tract infection) (2) Seizure Physical Therapy Order: Evaluate and Treat Home Health Nursing Order: Signs/symptoms of disease process I have seen patient Mary Alice Keller on 05/13/16. My clinical findings support the need for the requested home health care services because: Deconditioned w/ increased weakness I certify that my clinical findings support that this patient is homebound because: Poor cardiac reserve Kenney Amador MD May 13, 2016 12:53
[2016-05-13] MEDS ORDERED: LEVE250 PO (12:55)
[2016-05-13] MEDS ORDERED: CIPR-9 PO (12:56)
== END 2016-05-13 18:48 | disposition home health service (06) | DRG 101 ==
LOC: NEPC 09:40 → NEDA 12:13 → N05A 17:13
PROVIDERS: ADMIT Hospitalist; ATTEND Hospitalist
DX: G40.89 Other seizures (principal); N39.0 Urinary tract infection, site not specified; E86.0 Dehydration; I48.91 Unspecified atrial fibrillation; G30.9 Alzheimer's disease, unspecified; E78.5 Hyperlipidemia, unspecified; E03.9 Hypothyroidism, unspecified; F02.80 Dementia in other diseases classified elsewhere, unspecified severity, without behavioral disturbance, psychotic disturbance, mood disturbance, and anxiety; E87.6 Hypokalemia; F41.9 Anxiety disorder, unspecified; M19.90 Unspecified osteoarthritis, unspecified site; Z86.73 Personal history of transient ischemic attack (TIA), and cerebral infarction without residual deficits
CPT/HCPCS: 70450; 71010; 80053; 81001; 82550; 83605; 84132; 84439; 84443; 84484; 85025; 85610; 87040; 87077; 87086; 87186; 93005; 95819; 96361; 96365; 96368; 96375; J0696; J1885; J3480; J7030; J7040